=== PATIENT | male | born 1945 | race Caucasian/White ===

== ENCOUNTER 2020-05-22 16:36 | Inpatient (IN) | payer OTHER ==
[2020-05-22 17:48] LABS: #Eosinphils 0.2 thou/uL (0.0-0.7); #Monocytes 0.9 thou/uL (0.11-0.59); #Neutrophils 10.4 thou/uL (1.40-6.50); %Basophils 0.2 % (0.0-1.0); %Eosinophils 1.2 % (0.0-10.0); %Lymphocytes 14.5 % (21.0-51.0); %Monocytes 6.4 % (0.0-10.0); %Neutrophils 77.7 % (42.0-75.0); Hemoglobin 9.1 g/dL (14.0-18.0); Mean Corpuscular HGB CONC 32.9 g/dL (32.0-36.0); Mean Corpuscular Hemoglobin 30.9 pg (27.0-31.0); Mean Corpuscular Volume 93.8 fL (78.0-98.0); Mean Platelet Volume 8.1 fL (7.4-10.4); Platelet Count 232 thou/uL (130-400); RBC Distribution Width 14.5 % (11.5-14.5); Red Blood Cell (RBC) Count 2.96 mill/uL (4.70-6.10); White Blood Cell (WBC) Count 13.4 thou/uL (4.8-10.8)
[2020-05-22] MEDS ORDERED: Pantoprazole 40 MG VIAL ONE (18:04)
[2020-05-22] MEDS ORDERED: Pantoprazole 80 MG, Admixture Fee 1 EACH in Sodium Chloride 0.9% 100 ML IVPB SCH (18:45)
[2020-05-22] MEDS ORDERED: Norepinephrine 8 MG/0.9% NS 250 ML IVPB PRN (19:09)
[2020-05-22] MEDS ORDERED: Pantoprazole 80 MG in Sodium Chloride 0.9% 100 ML IVPB SCH (19:15)
[2020-05-22] MEDS ORDERED: Norepinephrine 8 MG/0.9% NS 250 ML ONE (20:04)
--- NOTE | 2020-05-22 21:01 | RAD ---
PORTABLE CHEST: History: Assess central line placement. Comparison: Exam earlier today. FINDINGS: Central line has been placed through the right jugular. The line overlies the SVC. AICD leads also ov erlie the SVC and the leads appear adequately positioned in the right atrium and right ventricle. Cardiomegaly and mild vascular congestion again noted. Interstitial prominence suggests mild intersti tial edema. No interval change in the appearance of the chest. IMPRESSION: As above. POS: AGW
[2020-05-22 21:27] LABS: Bilirubin Negative (Negative); Blood, Urine Negative (Negative); Clarity Clear (Clear); Glucose, Urine (Dipstick) Normal (Negative); Ketone, Urine Negative (Negative); Leukocyte Negative Leu/uL (Negative); Nitrite Negative (Negative); Protein, Urine (Dipstick) Negative (Neg-Trace); Specific Gravity, Urine 1.009 (1.002-1.036); Urobilinogen Normal mg/dL (Less than 2)
[2020-05-23 00:36] LABS: Hemoglobin 8.9 g/dL (14.0-18.0)
--- NOTE | 2020-05-23 01:38 | HP ---
CHIEF COMPLAINT: Bloody diarrhea. HISTORY OF PRESENT ILLNESS: The patient is a 74-year-old male, with past medical history of dilated cardiomyopathy, status post defibrillator. He also has a history of atrial arrhythmia, status post ablation and currently on anticoagulation with Xarelto, which the patient has not taken for the past couple of days. He presented to the ER due to worsening bloody stools. He stated he has been having black stools for the past month, but over the past few days, he has been noticing increasing amount. Earlier today, the patient had a large bloody bowel movement that caused him to have an episode of incontinence. This prompted the patient to present to the ER. He was found to have a hemoglobin level of 8 at an outside ER. He was hypotensive. He was transfused a unit of blood and transferred to our emergency department. In the ER, the patient has been persistently hypotensive with systolic blood pressure in the mid 70s. He appeared to be asymptomatic at rest. The patient complained of feeling weak with shortness of breath with minimal exertion. His son, who is at bedside stated that the patient's lower extremity edema has been worsening recently. The patient is currently receiving the second unit of packed RBCs. REVIEW OF SYSTEMS: Negative, except as noted in HPI. PAST MEDICAL HISTORY: Ischemic cardiomyopathy; coronary artery disease, status post stenting; atrial flutter; hypertension; hyperlipidemia; incomplete left bundle-branch block; and COPD. PAST SURGICAL HISTORY: Defibrillator placement. SOCIAL HISTORY: The patient denies alcohol or illicit drug use, but is currently smoking one and half packs of cigarettes a day. ALLERGIES: NO KNOWN DRUG ALLERGIES. PHYSICAL EXAMINATION: GENERAL: The patient is alert and oriented x3. HEENT: Head is normocephalic and atraumatic. Extraocular muscles are intact. NECK: Supple. No evidence of JVD. CHEST: Auscultation reveals fine crackles at the bases bilaterally. CARDIOVASCULAR: Reveals normal S1, S2 with regular rate and rhythm. ABDOMEN: Soft, nontender, and nondistended. NEUROLOGIC: Does not reveal any focal deficits. PERTINENT DATA: Hemoglobin level after the first unit is 9.1 and hematocrit is 27.7. Blood chemistry is largely unremarkable with creatinine level of 0.8 and BUN of 50. His BNP is 3735. Chest x-ray showed prominence of the lung marking bilaterally suggesting edema from congestive heart failure. ASSESSMENT: 1. Hemorrhagic shock. 2. Anemia due to acute blood loss. 3. Gastrointestinal bleeding. 4. Ischemic cardiomyopathy. 5. Chronic obstructive pulmonary disease. 6. Atrial flutter. PLAN: The patient will be admitted to the intensive care unit. We will initiate resuscitation with another unit of packed RBCs. Given the patient's low EF of around 10% to 15%, we might not be able to achieve very high blood pressures, so systolic blood pressure of greater than 80 would probably suffice. If we are unable to maintain his blood pressure despite transfusion, we will initiate vasopressors. GI is consulted and the patient is now on Protonix drip. I have also discussed the case with Critical Care and Cardiology. Since the patient has not taken his Xarelto yesterday, he is not a candidate for reversal agent. He will be monitored in the intensive care unit as his respiratory status might deteriorate with resuscitation efforts. We will place his antihypertensive and cardiac medications on hold until his hemodynamics are stabilized. Job ID: [id number]
[2020-05-23] MEDS ORDERED: Phenylephrine 40 MG in Sodium Chloride 0.9% 250 ML 250 ML IVPB PRN (01:45)
--- NOTE | 2020-05-23 01:50 | CON ---
DATE OF CONSULTATION: 05/22/2020 REASON FOR CONSULTATION: Hypotension related to GI bleed. HISTORY OF PRESENT ILLNESS: The patient presented to an outside emergency room earlier today with melena and some hematochezia. Onset of symptoms occurred about a week ago, associated with weakness and some dyspnea. He was fluid resuscitated. Unfortunately, he has a very low ejection fraction and there is some concern he could tip over. He has been hypotensive since being in this ER. He has received two units of PRBCs. I had to put him on low-dose Levophed. PAST MEDICAL HISTORY: 1. Cardiomyopathy. 2. Hyperlipidemia. 3. Hypertension. 4. Chronic obstructive pulmonary disease. PAST SURGICAL HISTORY: Pacemaker placement. PSYCHIATRIC HISTORY: Unremarkable. SOCIAL HISTORY: Smokes about a pack and a half a day. Uses smokeless tobacco. ALLERGIES: IODINE. MEDICATIONS: Prior to admission, not completely known at this time, but he was taking Naprosyn. He has also been taking Xarelto, but he does not take any of his medications regularly. PHYSICAL EXAMINATION: VITAL SIGNS: Temperature is 97.5, pulse 80 and paced, O2 saturation 100%, and blood pressure 96/ on 5 mcg/minute of Levophed. GENERAL: He is awake and alert and in no distress. HEENT: Unremarkable. NECK: No adenopathy or JVD. LUNGS: Clear. CARDIAC: S1, S2. Regular and paced. ABDOMEN: Soft and nontender to palpation. EXTREMITIES: Pale, but no cyanosis or edema. LABORATORY DATA: INR 1.5. Sodium 143, potassium 4, chloride 109, CO2 of 24, BUN 50, creatinine 0.8, and glucose 111. White blood cell count 13, hematocrit 27.7, and platelet count 232. Chest x-ray shows some pulmonary edema. ASSESSMENT: 1. Upper gastrointestinal bleed. 2. Cardiomyopathy. PLAN: Patient will need some Levophed for blood pressure support. He has been fluid resuscitated carefully. He has received blood. His H and H will be monitored. Dr. Bush is on the case. Patient also received IV Protonix. Job ID: [id number]
--- NOTE | 2020-05-23 01:56 | CON ---
DATE OF CONSULTATION: 05/22/2020 REASON FOR CONSULT: GI hemorrhage. HISTORY OF PRESENT ILLNESS: Mr. Maldonado is a 74-year-old gentleman, who has a history of severe heart failure with EF about anywhere between 10% and 30% with a defibrillator in place, who presented to an outside emergency room at 9 this morning with complaints of shortness of breath and bleeding, seems that he has been having some dark stools for several weeks. The son states maybe a month. When today he had two stools, it has been black to maroon and very loose. There is not really any associated pain with this. His son notes; however, he has been losing weight. His son also questions his compliance with his cardiac medicines and anticoagulation. He is usually on Xarelto, but it seems he has not taken this in at least two days. At the outside facility, he had a blood pressure 76/46 and a pulse of 76, who was given IV fluids as well as a unit of blood and transferred to this facility. He is also given 60 mg of Lasix with a liter of fluid and some Pepcid. At the outside facility, his hemoglobin was 8 with a white count of 11.9, platelet count of 239, BUN of 50, and a creatinine of 0.85 and normal electrolytes. Calcium was 7.7, albumin 2.6, protein 4.8, and liver function tests were normal. His INR was 1.5 with a PTT of 41. He was in some respiratory distress. Chest x-ray showed cardiomegaly with severe congestive heart failure. Troponins were negative at the outside facility. Here, he has received a second unit of blood. Nurses reported he had a large stool that was more maroon and black. His blood pressure was 88/57, pulse of 88, temperature 97, and O2 saturation 97% on room air and his pressures have stayed about there. He is just starting a transfusion here now for his second unit of blood. Here on arrival, his hemoglobin was 9. He was felt to be in heart failure. He was given Protonix infusion, it is now on a drip. He is being admitted to the ICU by the hospitalist, plant maintenance engineer on-call for his plant maintenance engineer has been consulted. I have talked to him on the phone. He knows reviewing the chart records, there has been some issues with compliance and the son does confirm that he does not think he has been taking his medicines. He has also had some right hip pain, for which he may have been taking NSAIDs at home. The son is not sure, but the patient has mentioned ibuprofen. PAST MEDICAL HISTORY: Severe congestive heart failure from coronary artery disease with previous stents and defibrillator placement in 2013, this was recently changed last month. He also has some COPD. He continues to smoke. He denies a history of hypertension or diabetes at this time. PAST SURGICAL HISTORY: Remote, no abdomen per son. SOCIAL HISTORY: He smokes about a pack and half per day. He does not drink anymore. When he was younger, he drank quite a bit. He lives by himself in the [facility]. ALLERGIES: POSSIBLY IODINE, BUT UNCONFIRMED. MEDICATIONS: [facility], but he is on Xarelto. A list of medicines the patient has looks like maybe from the [place] indicates; 1. Aspirin. 2. Combivent. 3. Advair. 4. Coreg. 5. Lasix. 6. Metoprolol. 7. Lisinopril. 8. Simvastatin. 9. Potassium chloride. The son notes Xarelto is on that as well, but again there is question about compliance. REVIEW OF SYSTEMS: Cannot be obtained. Other than the fact he is short of breath, he states he has been voiding. He denies prior history of bleeding. He has no chest pain. PHYSICAL EXAMINATION: VITAL SIGNS: Presently, his blood pressure is 84/49 with a pulse of 76, and O2 saturation 98%. Paced heart rhythm. GENERAL: He is alert, mildly cantankerous, history of mild dementia. He appears chronically ill. NECK: He has JVD. LUNGS: Breath sounds are poor with some crackles. HEART: He has a regular rate and rhythm. ABDOMEN: Slightly protuberant. He has no shifting dullness, tenderness, rebound, or guarding. RECTAL: Deferred. He has had large bloody stool here today. Rectal exam will be repeated once he gets upstairs. EXTREMITIES: Reveal severe edema. LABORATORY STUDIES: Here, white count 13.4 and hemoglobin 9.1, it was after 1 unit of blood at the outside hospital. Platelet count 232. INR 1.5 and PTT is 41.7. Sodium 143, potassium 4, chloride 109, bicarb 24, BUN 50, creatinine 0.85, and in October, his BUN was 22 and creatinine is 1.47. BNP is 3735 and it was 379 in 2018. Albumin is 2.6. Liver function tests normal. Troponin was 0.27 at 1217 hours. ASSESSMENT AND PLAN: 1. Gastrointestinal hemorrhage more likely upper than lower in light of his nonsteroidal anti-inflammatory drug use and dark stools for several weeks before coming in, but this could be lower. 2. [place] heart failure. 3. Hypotension. It is unclear if this is about where he runs in the past. I cannot pull up any old vital signs on [place]'s records until he is admitted to see what he has been in the past, although there is no records here prior to 2013. 4. Severe cardiomyopathy. 5. History of defibrillator placement. 6. History of mild dementia. 7. History of coronary artery disease, previous stenting. 8. Gastrointestinal hemorrhage. Resuscitation has been aggressive with the unit of blood at the outside facility, a liter of fluid there. He is on a proton pump inhibitor now. There is no role for reversal of this relative as it does not seem he has taken this in several days if at all in the past several weeks, which is fortunate for him. He will be admitted to the ICU. Atkinson catheter placed as we get him stabilized and plans if there are signs of ongoing hemorrhage, we get resuscitated in the upper GI bleed, which will probably require upper endoscopy to probably prior to intubation. If he stabilizes, we may try to diurese him first to help his cardiac status prior to that. I have talked about these. 9. I talked about these issues with the patient's son and need for resuscitation before moving to endoscopy and medical management. I have talked with the admitting hospitalist. I have talked with Pulmonary/Critical Care on-call tonight about the potential for needing intubation at some point on this evening. I have talked with Cardiology on-call as well about his past history. We will follow along with you. Job ID: [id number]
[2020-05-23 04:08] LABS: ALT (SGPT) 14 U/L (8-55); AST (SGOT) 10 U/L (5-34); Albumin 2.4 g/dL (3.4-4.8); Alkaline Phosphatase 52 U/L (40-110); Anion Gap 13 mmol/L (10-20); BUN (Urea Nitrogen) 45 mg/dL (8.4-25.7); Calc. Creatinine Clearance 81 mL/min (70-130); Calcium 7.7 mg/dL (7.8-10.44); Carbon Dioxide 23 mmol/L (23-31); Chloride 112 mmol/L (98-107); Estimated GFR-MDRD 80; Globulin 2.1 g/dL (2.4-3.5); Glucose 155 mg/dL (83-110); Potassium 4.4 mmol/L (3.5-5.1); Protein, Total 4.5 g/dL (5.8-8.1); Sodium 144 mmol/L (136-145)
[2020-05-23 04:14] LABS: Band 2 % (5-11); Eosinophils 1 % (0-10); Hemoglobin 7.6 g/dL (14.0-18.0); Lymphocytes 9 % (21-51); MDiff Complete? YES; Mean Corpuscular HGB CONC 31.5 g/dL (32.0-36.0); Mean Corpuscular Hemoglobin 29.8 pg (27.0-31.0); Mean Corpuscular Volume 94.7 fL (78.0-98.0); Mean Platelet Volume 8.3 fL (7.4-10.4); Monocytes 6 % (0-10); Neutrophil 82 % (42-75); Platelet Count 237 thou/uL (130-400); Platelet Morphology Comment Appears Adequate; RBC Distribution Width 14.3 % (11.5-14.5); Red Blood Cell (RBC) Count 2.56 mill/uL (4.70-6.10); White Blood Cell (WBC) Count 15.9 thou/uL (4.8-10.8)
--- NOTE | 2020-05-23 04:41 | PDOC.EVN ---
Event Note - Event Note Event Note: Patient hemoglobin 8.9 at 2340 last night and then at 0330 it was 7.6. Since the time that the lab was drawn the patient had two additional large melena stools. Will transfuse 1 additional unit of PRBC at this time and continue to monitor for bleeding and lab levels.
[2020-05-23] MEDS ORDERED: Ketamine 50 MG/ML (10ML VIAL) ONE (06:55)
[2020-05-23] MEDS ORDERED: Midazolam HCl 2 mg/2 ml Vial ONE (06:55)
[2020-05-23 08:13] LABS: SARS-CoV-2 NAA Rapid Test Not Detected (NotDetected)
--- NOTE | 2020-05-23 08:22 | PRG ---
DATE OF SERVICE: 05/23/2020 SUBJECTIVE: Mr. Maldonado has continued to require Levophed overnight in increasing doses. He had several bloody bowel movements last night. He has been taking down end of this morning. OBJECTIVE: VITAL SIGNS: Temperature 97.6, pulse 100, blood pressure 101/62, O2 saturation 100%. HEENT: Unremarkable. NECK: No JVD. LUNGS: Clear. CARDIAC: S1 and S2. Regular. ABDOMEN: Soft and nontender. EXTREMITIES: Edematous legs. LABORATORY DATA: White blood cell count 15.9, hematocrit 24.2, and platelet count 237. Sodium 144, potassium 4.4, chloride 112, CO2 of 23, BUN 45, creatinine 0.9, glucose 155. ASSESSMENT: 1. Gastrointestinal bleeding. 2. Cardiomyopathy. 3. Hypotension. 4. Underlying chronic obstructive pulmonary disease. PLAN: 1. Endoscopy this morning. 2. Transfuse as needed. 3. Wean off Levophed as tolerated. 4. Continue Protonix. Job ID: [id number]
[2020-05-23] MEDS: Norepinephrine 8 MG/0.9% NS 250 ML IVPB PRN ×2 (09:33→20:56)
[2020-05-23] MEDS ORDERED: EPINEPHrine 1 MG/10 ML Abboject SYRINGE ONE (10:32)
[2020-05-23] MEDS ORDERED: PHENYLEPHRINE-NS 100 MCG/ML 10 ML SYRINGE ONE (10:32)
[2020-05-23] MEDS ORDERED: EPHEDRINE 25 MG/5 ML SYRINGE ONE (10:32)
--- NOTE | 2020-05-23 10:32 | OP ---
DATE OF PROCEDURE: 05/23/2020 PROCEDURE PERFORMED: Esophagogastroduodenoscopy with control of hemorrhage. POSTPROCEDURE DIAGNOSES: 1. Duodenal ulcer, posterior wall of the bulb with visible vessel, injected with 4 mL of 1:10,000 epinephrine and cauterized with 10-Kazakh heater probe. Two hemoclips placed. Control of hemorrhage at the end of the procedure, ablation of the visible vessel. 2. Small white based ulcer, 7 mm in size, shallow, anterior wall of the bulb. No visible vessel. No active bleeding. 3. Multiple small erosions in the duodenal bulb, consistent with NSAID use. 4. Small erosions in the antrum, nonbleeding. 5. Large periampullary duodenal diverticula with no signs of bleeding. RECOMMENDATIONS: 1. Continue ICU care. 2. Continue Protonix drip for 24 hours. If no bleeding, then change to q.12 hours. 3. Transfuse to support as necessary. 4. H pylori can be checked at a later time. DESCRIPTION OF PROCEDURE: After the patient was informed of the risks, benefits, and possible complications of endoscopy including perforation, bleeding, reaction to medication, and aspiration, informed consent was obtained. The patient was brought to the endoscopy suite, where he was sedated in gradual fashion by Anesthesia. Ketamine and Versed were used secondary to his EF of 10%. A bite block was placed in the incisural orifice. The endoscope was advanced through the esophagus, stomach, into the second and third portions of the duodenum and slowly removed. The esophagus was normal without any evidence of varices or ulcerations. There was a small hiatal hernia with no evidence of Schatzki ring or [place] erosions. Retroflexed views in the stomach were normal with no proximal gastric or incisura lesions. The antrum was notable for a few small white based erosions consistent with NSAID use without visible vessel or signs of bleeding. There was some slight red blood refluxing from the duodenal bulb into the stomach. Once this was cleared away, we made sure there was no bleeding sites in the stomach. The scope was advanced to the duodenal bulb, where there was some fresh blood, moderate amounts, but no active pumping vessel seen. The scope was advanced through the bulb to the second and third portions, where old blood was found and suctioned away with no visible vessels or bleeding site seen. There was a duodenal diverticula with lot of blood and we entered this and cleared that out. There was no bleeding there. The ampulla appeared normal with clear bile coming from it. Ultimately, there was a small 7 mm flat white based ulcer in the anterior wall of the bulb, which was shallow but not bleeding. There was a red spot, but again it was not bleeding. Photo documentation was obtained. Blood continued to accumulate superiorly and posteriorly, and ultimately we were able to find a small 4 to 5 mm ulcer with a visible vessel in the posterior wall and this was injected with 1:10,000 epinephrine and then cauterized and then clipped. After this, there was no further blood reaccumulation. The duodenum was evaluated again. The stomach was evaluated and the esophagus, and the stomach was desufflated. The scope was removed. The patient was returned to the ICU. Job ID: [id number]
[2020-05-23 11:29] LABS: Hemoglobin 7.1 g/dL (14.0-18.0)
--- NOTE | 2020-05-23 12:45 | PDOC.HOSPP ---
- Subjective Encounter Date: 05/23/20 Encounter Time: 11:00 Subjective: awakens, but not oriented just came back for upper endoscopy - Objective Vital Signs & Weight: Vital Signs (12 hours) Temp Pulse Ox 05/23/20 12:04 98.0 F 05/23/20 09:00 97.9 F 05/23/20 08:00 99 05/23/20 06:00 97.6 F Weight Weight 181 lb 9.6 oz Most Recent Monitor Data Heart Rate from ECG 95 NIBP 82/51 NIBP BP-Mean 61 Respiration from ECG 16 SpO2 99 I&O: 05/22/20 05/23/20 05/24/20 06:59 06:59 06:59 Intake Total 722 475 Output Total 1170 365 Balance -448 110 Result Diagrams: 05/23/20 11:07 05/23/20 03:37 Hospitalist ROS - Medication Medications: Active Medications Generic Name Dose Route Start Last Admin Trade Name Freq PRN Reason Stop Dose Admin Pantoprazole Sodium 80 mg/ 100 mls @ 10 mls/hr 05/22/20 19:15 05/23/20 05:13 Sodium Chloride IVPB 100 mls INF MAMADOU Administration Norepinephrine Bitartrate 250 mls @ 0 mls/hr 05/22/20 19:17 05/23/20 09:33 Levophed IVPB 250 mls PRN PRN Administration To maintain MAP > 60 Protocol Titrate - Exam General Appearance: ill appearing Eye: PERRL, anicteric sclera ENT: no oropharyngeal lesions, dry oral mucosa Neck: supple, no JVD Heart: RRR, no murmur Respiratory: no wheezes, no rales, rhonchi Gastrointestinal: soft, non-distended, normal bowel sounds Extremities: no cyanosis, 2+ LE edema Neurological: cranial nerve grossly intact, no focal deficits Hosp A/P (1) GI hemorrhage Code(s): K92.2 - GASTROINTESTINAL HEMORRHAGE, UNSPECIFIED Status: Acute Qualifiers: GI bleed type/associated pathology: duodenal ulcer Qualified Code(s): K26.4 - Chronic or unspecified duodenal ulcer with hemorrhage (2) Hemorrhagic shock Code(s): R57.8 - OTHER SHOCK Status: Acute (3) Acute blood loss anemia Code(s): D62 - ACUTE POSTHEMORRHAGIC ANEMIA Status: Acute (4) Acute exacerbation of CHF (congestive heart failure) Code(s): I50.9 - HEART FAILURE, UNSPECIFIED Status: Acute Qualifiers: Heart failure type: combined systolic and diastolic Qualified Code(s): I50.43 - Acute on chronic combined systolic (congestive) and diastolic ( congestive) heart failure (5) Cardiomyopathy Code(s): I42.9 - CARDIOMYOPATHY, UNSPECIFIED Status: Chronic Qualifiers: Cardiomyopathy type: dilated Qualified Code(s): I42.0 - Dilated cardiomyopathy (6) COPD (chronic obstructive pulmonary disease) Status: Chronic Qualifiers: COPD type: unspecified COPD Qualified Code(s): J44.9 - Chronic obstructive pulmonary disease, unspecified (7) Tobacco abuse Code(s): Z72.0 - TOBACCO USE Status: Chronic (8) Dyslipidemia Code(s): E78.5 - HYPERLIPIDEMIA, UNSPECIFIED Status: Chronic (9) CAD (coronary artery disease) Code(s): I25.10 - ATHSCL HEART DISEASE OF [place] CORONARY ARTERY W/O ANG PCTRS Status: Chronic Qualifiers: Coronary Disease-Associated Artery/Lesion type: [place] artery [place] vs. transplanted heart: [place] heart - Plan serial H/h, transfuse if Hb <7g will transfuse 3 rd unit of prbc now, still on levophed, sbp around 80's now s/o egd with large duodenal ulcer with visible vessel, cauterized 05/23. ana hose to lower extremities for severe edema has apparently ef of around 10% if needed will use dobutamine based on urine output cardiology consultation prognosis guarded d/w son and gave full updates, they will talk to their father later to update us about code status. palliative care cardiology consultation, he sees
[2020-05-23] MEDS: Pantoprazole 80 MG, Admixture Fee 1 EACH in Sodium Chloride 0.9% 100 ML IVPB SCH (15:54)
[2020-05-23] MEDS ORDERED: Digoxin 0.25 MG TAB PO SCH (16:15)
--- NOTE | 2020-05-23 18:02 | EKG ---
Test Reason : STAT Blood Pressure : / mmHG Vent. Rate : 094 BPM Atrial Rate : 094 BPM P-R Int : 194 ms QRS Dur : 100 ms QT Int : 342 ms P-R-T Axes : -20 -10 -29 degrees QTc Int : 427 ms AV dual-paced rhythm PVC Abnormal ECG No previous ECGs available Confirmed by DR. Toni LOPEZ ([id number]) on 05/23/2020 6:01:38 PM Referred By: Confirmed By:DR. Toni LOPEZ
[2020-05-23 19:28] LABS: Hemoglobin 7.9 g/dL (14.0-18.0)
[2020-05-23] MEDS ORDERED: FLU VACC QS2020-21(65YR UP)/PF 240 MCG/0.7 ML SYRINGE IM ONE (21:00)
[2020-05-23 23:26] LABS: #Basophils 0.1 thou/uL (0.0-0.2); #Eosinphils 0.1 thou/uL (0.0-0.7); #Monocytes 1.1 thou/uL (0.11-0.59); #Neutrophils 12.7 thou/uL (1.40-6.50); %Basophils 0.3 % (0.0-1.0); %Eosinophils 0.4 % (0.0-10.0); %Lymphocytes 12.4 % (21.0-51.0); %Monocytes 7.1 % (0.0-10.0); %Neutrophils 79.8 % (42.0-75.0); Hemoglobin 7.7 g/dL (14.0-18.0); Mean Corpuscular HGB CONC 32.3 g/dL (32.0-36.0); Mean Corpuscular Hemoglobin 29.6 pg (27.0-31.0); Mean Corpuscular Volume 91.5 fL (78.0-98.0); Mean Platelet Volume 8.3 fL (7.4-10.4); Platelet Count 216 thou/uL (130-400); RBC Distribution Width 15.1 % (11.5-14.5); Red Blood Cell (RBC) Count 2.59 mill/uL (4.70-6.10); White Blood Cell (WBC) Count 15.9 thou/uL (4.8-10.8)
[2020-05-23 23:29] LABS: INR-International Normal Ratio 1.4; Prothrombin Time 17.6 sec (12.0-14.7)
[2020-05-23 23:30] LABS: PTT 34.7 sec (22.9-36.1)
[2020-05-23] MEDS: Albumin 25% 25 GM/100 ML BOT IVPB SCH (23:33)
--- NOTE | 2020-05-23 23:41 | RAD ---
Exam: Chest one view HISTORY:Respiratory distress Comparison: 05/22/2020 FINDINGS: Cardiac silhouette:Stable cardiomegaly. Stable left-sided defibrillator with lead positioned over the right atrium, right ventricle and coronary sinus. Redemonstration of a right-sided internal jugular vascular catheter. Distal tip terminates in the exp ected region of the superior vena cava. Aorta: Unremarkable Pulmonary vessels: Prominent Costophrenic angles: Clear LUNGS: Scattered interstitial and alveolar opacities. Pneumothorax: None Osseous abnormalities: None IMPRESSION: 1. Cardiomegaly. 2. Persistent interstitial and alveolar opacities. Correlate for edema or infiltrate.
[2020-05-23 23:42] LABS: Lactic Acid 2.6 mmol/L (0.5-2.2)
[2020-05-23 23:54] LABS: ALT (SGPT) 13 U/L (8-55); AST (SGOT) 15 U/L (5-34); Albumin 2.4 g/dL (3.4-4.8); Alkaline Phosphatase 47 U/L (40-110); Anion Gap 14 mmol/L (10-20); BUN (Urea Nitrogen) 48 mg/dL (8.4-25.7); Bilirubin, Total 1.9 mg/dL (0.2-1.2); Calc. Creatinine Clearance 74 mL/min (70-130); Calcium 7.8 mg/dL (7.8-10.44); Carbon Dioxide 20 mmol/L (23-31); Chloride 111 mmol/L (98-107); Estimated GFR-MDRD 72; Glucose 148 mg/dL (83-110); Potassium 4.3 mmol/L (3.5-5.1); Protein, Total 4.4 g/dL (5.8-8.1); Sodium 141 mmol/L (136-145)
[2020-05-24] MEDS ORDERED: Furosemide 40 MG/4 ML VIAL SLOW IVP SCH (01:30)
[2020-05-24] MEDS: Pantoprazole 80 MG, Admixture Fee 1 EACH in Sodium Chloride 0.9% 100 ML IVPB SCH ×2 (03:09→11:57)
[2020-05-24 04:52] LABS: Band 5 % (5-11); Hemoglobin 7.8 g/dL (14.0-18.0); Hypochromia SLIGHT = 6-15 cells (100X) (0-5/hpf); Lymphocytes 3 % (21-51); MDiff Complete? YES; Mean Corpuscular HGB CONC 33.3 g/dL (32.0-36.0); Mean Corpuscular Hemoglobin 30.6 pg (27.0-31.0); Mean Corpuscular Volume 91.7 fL (78.0-98.0); Mean Platelet Volume 8.2 fL (7.4-10.4); Monocytes 6 % (0-10); Neutrophil 86 % (42-75); Platelet Count 210 thou/uL (130-400); Platelet Morphology Comment Appears Adequate; RBC Distribution Width 14.8 % (11.5-14.5); Red Blood Cell (RBC) Count 2.54 mill/uL (4.70-6.10); White Blood Cell (WBC) Count 15.9 thou/uL (4.8-10.8)
[2020-05-24 05:00] LABS: Digoxin 0.25 ng/mL (0.8-2.0)
[2020-05-24 05:01] LABS: ALT (SGPT) 13 U/L (8-55); AST (SGOT) 16 U/L (5-34); Albumin 2.8 g/dL (3.4-4.8); Alkaline Phosphatase 49 U/L (40-110); Anion Gap 14 mmol/L (10-20); BUN (Urea Nitrogen) 49 mg/dL (8.4-25.7); Bilirubin, Total 2.1 mg/dL (0.2-1.2); Calc. Creatinine Clearance 70 mL/min (70-130); Carbon Dioxide 21 mmol/L (23-31); Chloride 110 mmol/L (98-107); Cholesterol 56 mg/dl (< 200 Desired); Estimated GFR-MDRD 68; Globulin 1.9 g/dL (2.4-3.5); Glucose 155 mg/dL (83-110); HDL Cholesterol 14 mg/dL (>60 Neg Risk); LDL Cholesterol, Calculated 26 mg/dL; Potassium 4.4 mmol/L (3.5-5.1); Protein, Total 4.7 g/dL (5.8-8.1); Sodium 141 mmol/L (136-145); Triglycerides 80 mg/dL (Less than 150)
[2020-05-24] MEDS: Albumin 25% 25 GM/100 ML BOT IVPB SCH ×2 (06:20→11:57)
--- NOTE | 2020-05-24 07:47 | PRG ---
DATE OF SERVICE: 05/24/2020 SUBJECTIVE: The patient continues in the ICU with hypotension status post endoscopy for upper GI bleed due to ulcers. He is still having some bright red blood per rectum. He remains on Levophed drip at 14 mcg/minute. OBJECTIVE: VITAL SIGNS: Temperature 97.6, pulse 90, blood pressure 88/67, O2 saturation 100%. 24-hour intake 5219, output 1292. HEENT: Unremarkable. NECK: No adenopathy or JVD. LUNGS: Few crackles in the bases. CARDIAC: S1, S2. Regular. ABDOMEN: Soft and nontender to palpation. EXTREMITIES: No edema. IMAGING: His x-ray shows interstitial changes bilaterally-no different from before. LABORATORY DATA: White blood cell count 15.9, hemoglobin 7.8, hematocrit 23.3, and platelet count 210. Sodium 141, potassium 4.4, chloride 110, CO2 of 21, BUN 49, creatinine 1.0, glucose 155. ASSESSMENT: 1. Gastrointestinal bleed-peptic ulcer disease. 2. Cardiomyopathy. 3. Hypotension. 4. Underlying chronic obstructive pulmonary disease. PLAN: 1. Wean off Levophed as tolerated. 2. Continue Protonix. 3. Give one more unit PRBCs. 4. Can discontinue Atkinson catheter. Job ID: [id number]
[2020-05-24] MEDS: Digoxin 0.125 MG TAB PO SCH (08:45)
[2020-05-24] MEDS: Amiodarone 200 MG TAB PO SCH (08:45)
--- NOTE | 2020-05-24 13:22 | PDOC.HOSPP ---
- Subjective Encounter Date: 05/24/20 Encounter Time: 11:00 Subjective: awake, no abd pain or nausea is tolerating liq diet - Objective Vital Signs & Weight: Vital Signs (12 hours) Temp Pulse Resp Pulse Ox 05/24/20 11:00 97.8 F 05/24/20 08:45 98 05/24/20 08:28 96.5 F L 05/24/20 08:00 96.5 F L 05/24/20 07:46 100 05/24/20 04:30 97.6 F 16 92 L 05/24/20 04:00 97.9 F 05/24/20 02:05 97.8 F 18 98 Weight Weight 181 lb 7.047 oz Most Recent Monitor Data Heart Rate from ECG 106 NIBP 101/59 NIBP BP-Mean 73 Respiration from ECG 31 SpO2 98 I&O: 05/23/20 05/24/20 05/25/20 06:59 06:59 06:59 Intake Total 722 2519 0 Output Total 1170 1292 200 Balance -448 1227 -200 Result Diagrams: 05/24/20 04:00 05/24/20 04:00 Hospitalist ROS - Medication Medications: Active Medications Generic Name Dose Route Start Last Admin Trade Name Freq PRN Reason Stop Dose Admin Amiodarone HCl 200 mg 05/24/20 09:00 05/24/20 08:45 Amiodarone 200 Mg Tab PO 200 mg DAILY MAMADOU Administration Digoxin 0.125 mg 05/24/20 09:00 05/24/20 08:45 Digoxin 0.125 Mg Tab PO 0.125 mg DAILY MAMADOU Administration Norepinephrine Bitartrate 250 mls @ 0 mls/hr 05/22/20 19:17 05/23/20 20:56 Levophed IVPB 250 mls PRN PRN Administration To maintain MAP > 60 Protocol Titrate Pantoprazole Sodium 80 mg/ 100 mls @ 10 mls/hr 05/23/20 13:00 05/24/20 11:57 Miscellaneous Medication 1 IVPB 100 mls each/ Sodium Chloride INF MAMADOU Administration - Exam General Appearance: awake alert, ill appearing Eye: PERRL, anicteric sclera ENT: no oropharyngeal lesions, dry oral mucosa Neck: supple, no JVD Heart: RRR, no murmur Respiratory: no wheezes, no ronchi, rales Gastrointestinal: soft, non-tender, non-distended, normal bowel sounds Extremities: no cyanosis, 2+ LE edema Neurological: cranial nerve grossly intact, no focal deficits Hosp A/P (1) GI hemorrhage Code(s): K92.2 - GASTROINTESTINAL HEMORRHAGE, UNSPECIFIED Status: Acute Qualifiers: GI bleed type/associated pathology: duodenal ulcer Qualified Code(s): K26.4 - Chronic or unspecified duodenal ulcer with hemorrhage (2) Hemorrhagic shock Code(s): R57.8 - OTHER SHOCK Status: Acute (3) Acute blood loss anemia Code(s): D62 - ACUTE POSTHEMORRHAGIC ANEMIA Status: Acute (4) Acute exacerbation of CHF (congestive heart failure) Code(s): I50.9 - HEART FAILURE, UNSPECIFIED Status: Acute Qualifiers: Heart failure type: combined systolic and diastolic Qualified Code(s): I50.43 - Acute on chronic combined systolic (congestive) and diastolic (congestive) heart failure (5) Cardiomyopathy Code(s): I42.9 - CARDIOMYOPATHY, UNSPECIFIED Status: Chronic Qualifiers: Cardiomyopathy type: dilated Qualified Code(s): I42.0 - Dilated cardiomyopathy (6) COPD (chronic obstructive pulmonary disease) Status: Chronic Qualifiers: COPD type: unspecified COPD Qualified Code(s): J44.9 - Chronic obstructive pulmonary disease, unspecified (7) Tobacco abuse Code(s): Z72.0 - TOBACCO USE Status: Chronic (8) Dyslipidemia Code(s): E78.5 - HYPERLIPIDEMIA, UNSPECIFIED Status: Chronic (9) CAD (coronary artery disease) Code(s): I25.10 - ATHSCL HEART DISEASE OF [place] CORONARY ARTERY W/O ANG PCTRS Status: Chronic Qualifiers: Coronary Disease-Associated Artery/Lesion type: [place] artery [place] vs. transplanted heart: [place] heart - Plan serial H/h, transfuse if Hb <7g recieved total of 5 u prbc this admission, still on levophed, sbp around 90's now s/p egd with large duodenal ulcer with visible vessel, cauterized 05/23. ana hose to lower extremities for severe edema has apparently ef of around 10% if needed will use dobutamine based on urine output prognosis guarded d/w son and daughter, gave full updates. palliative care consultation
--- NOTE | 2020-05-24 14:16 | PRG ---
DATE OF SERVICE: 05/24/2020 SUBJECTIVE: Mr. Maldonado is not having any abdominal pain or nausea. He has continued to pass some melenic stools. Nursing reports these are maroonish in color, small amount every couple of hours. He remains on Levophed, but is not tachycardic. He received one more unit of RBCs this morning after repeat hemoglobin was 7.8. He has received 5 units RBCs total. OBJECTIVE: VITAL SIGNS: Temperature 97.8, heart rate 98, blood pressure is 101/59, and oxygen saturation 98% on 2 L nasal cannula. GENERAL: No acute distress, sitting up in chair comfortably. HEART: Regular rate and rhythm. LUNGS: Bibasilar crackles. No respiratory distress. ABDOMEN: Bowel sounds present. Soft and nontender. EXTREMITIES: 1+ bilateral lower extremity edema. LABORATORY STUDIES: Hemoglobin is 7.8, WBC 15.9, and platelets 210. INR 1.4. Sodium 141, potassium 4.4, BUN is 49, creatinine 1.06, total bilirubin 2.1, alkaline phosphatase 49, AST 16, ALT 13, and albumin 2.8. ASSESSMENT AND PLAN: 1. Duodenal ulcer with hemorrhage, status post successful endoscopic intervention by Dr. Bush yesterday, visible vessel was treated with epinephrine injection, cautery, and hemoclip placement. 2. Acute blood loss anemia. 3. Congestive heart failure, with severely depressed ejection fraction. The patient has continued to pass some bloody stools, but it is not entirely clear to me whether this just represents old blood being passed or ongoing hemorrhage. He is relatively hemodynamically stable but did require another unit RBC transfusion today. He is at very high risk for any repeat endoscopy, though this could be considered if we had high suspicion for ongoing or recurrent bleeding. At this point, continue the pantoprazole drip, continue to trend H and H and transfuse as needed. If hemoglobin is not stabilized tomorrow and BUN remained elevated to this degree, then potentially repeat EGD could be performed tomorrow. We will have the patient n.p.o. after midnight just in case. Obviously, please call anytime if there are questions or concerns or changes in his clinical status. Job ID: [id number]
[2020-05-24] MEDS: Norepinephrine 8 MG/0.9% NS 250 ML IVPB PRN (15:12)
[2020-05-25] MEDS: Pantoprazole 80 MG, Admixture Fee 1 EACH in Sodium Chloride 0.9% 100 ML IVPB SCH ×2 (00:12→09:49)
[2020-05-25] MEDS: Norepinephrine 8 MG/0.9% NS 250 ML IVPB PRN ×2 (02:13→12:18)
[2020-05-25 05:28] LABS: Band 3 % (5-11); Lymphocytes 12 % (21-51); MDiff Complete? YES; Mean Corpuscular Hemoglobin 30.5 pg (27.0-31.0); Mean Corpuscular Volume 89.7 fL (78.0-98.0); Mean Platelet Volume 8.5 fL (7.4-10.4); Monocytes 7 % (0-10); Neutrophil 78 % (42-75); Platelet Count 231 thou/uL (130-400); Platelet Morphology Comment Appears Adequate; RBC Distribution Width 14.7 % (11.5-14.5); Red Blood Cell (RBC) Count 2.94 mill/uL (4.70-6.10); White Blood Cell (WBC) Count 22.1 thou/uL (4.8-10.8)
[2020-05-25 05:53] LABS: ALT (SGPT) 140 U/L (8-55); AST (SGOT) 215 U/L (5-34); Albumin 3.4 g/dL (3.4-4.8); Alkaline Phosphatase 56 U/L (40-110); Anion Gap 19 mmol/L (10-20); BUN (Urea Nitrogen) 63 mg/dL (8.4-25.7); Bilirubin, Total 4.2 mg/dL (0.2-1.2); Calc. Creatinine Clearance 44 mL/min (70-130); Calcium 8.9 mg/dL (7.8-10.44); Carbon Dioxide 18 mmol/L (23-31); Chloride 110 mmol/L (98-107); Estimated GFR-MDRD 40; Globulin 1.8 g/dL (2.4-3.5); Glucose 103 mg/dL (83-110); Potassium 4.7 mmol/L (3.5-5.1); Protein, Total 5.2 g/dL (5.8-8.1); Sodium 142 mmol/L (136-145)
[2020-05-25] MEDS: Digoxin 0.125 MG TAB PO SCH (07:43)
[2020-05-25] MEDS: Amiodarone 200 MG TAB PO SCH (07:43)
--- NOTE | 2020-05-25 07:53 | PRG ---
DATE OF SERVICE: 05/25/2020 SUBJECTIVE: Mr. Maldonado is still passing blood per rectum. He complains that he is thirsty. OBJECTIVE: VITAL SIGNS: His temperature 96.9, pulse 105, blood pressure 97/60, and O2 saturation is 95%. He is currently on Levophed at 14 mcg/minute. He is also on a Protonix drip. His intake for the last 24 hours has been 1045, output 250. HEENT: Unremarkable. NECK: No JVD. LUNGS: Clear. CARDIAC: S1, S2. Regular. ABDOMEN: Soft. EXTREMITIES: Edematous. LABORATORY DATA: White blood cell count 22.1, hemoglobin 9, hematocrit 26.4, and platelet count 231. Sodium 142, potassium 4.7, chloride 110, CO2 of 18, BUN 63, creatinine 1.6, glucose 103, AST 215, and ALT 140. His echocardiogram demonstrated an ejection fraction of 10% to 15% with pulmonary hypertension and mild aortic regurgitation and severe tricuspid regurgitation. ASSESSMENT: 1. Gastrointestinal bleed. 2. Cardiomyopathy. 3. Pulmonary hypertension. 4. Systemic hypotension. 5. Underlying chronic obstructive pulmonary disease. 6. Anemia due to blood loss. PLAN: 1. May need repeat endoscopy - we will defer GI Service on this. 2. Wean Levophed as tolerated. 3. Dr. Jessica has consulted Dr. Guzman to evaluate the patient's heart failure. 4. The patient will need to remain in ICU while he is on the Levophed drip. Job ID: [id number]
[2020-05-25] MEDS ORDERED: DOBUTamine 500 mg/250 ml 250 ML ONE (09:26)
--- NOTE | 2020-05-25 09:50 | PRG ---
DATE OF SERVICE: 05/25/2020 SUBJECTIVE: Mr. Madlonado passed a 4 or 5 small volume dark stools last night. He has had no abdominal pain or nausea or vomiting. He is asking for fluids to drink. OBJECTIVE: VITAL SIGNS: Temperature 97.6, blood pressure 88/59. Remains on Levophed. Pulse 105. GENERAL: He is in no acute distress. He is awake and alert. LUNGS: Have coarse breath sounds bilaterally with expiration, low pitched wheeze. HEART: Tachycardic. S1 and S2. ABDOMEN: Soft, nontender, and nondistended. Bowel sounds are present. EXTREMITIES: 2+ pitting lower extremity edema. LABORATORY DATA: White blood cell count 22.1, hemoglobin 9.0, platelets 231. INR 1.4. Creatinine 1.68 with a BUN of 63, bilirubin 4.2, AST 215, ALT 140, alkaline phosphatase 56. IMPRESSION: 1. Gastrointestinal bleed, status post cautery of a visible vessel and duodenal ulcer. He received 2 units of transfusion yesterday, however, one of those was prior to the blood draw yesterday. His hemoglobin from 05/23/2020 to today has gone from 7.7 and 9.0 after the 2 units. He is relatively stable and we will keep an eye on this. He is an extremely poor candidate for any type of anesthesia at this point and we will just need to transfuse as necessary. 2. Ischemic hepatopathy. His AST is greater than ALT with bump in his bilirubin and concurrent acute renal injury. This is likely all secondary to congestive hepatopathy. 3. Acute renal failure. 4. Leukocytosis. He is having blood cultures drawn and empiric antibiotics given by the primary service. RECOMMENDATIONS: We will continue to monitor the trend of his hemoglobin and transfused as necessary. Upper endoscopy could be performed if he shows significant overt bleeding; however, he is extremely high risk for anesthesia. He remains on Levophed and he is showing injury to multiple organs now from hypoperfusion. Job ID: [id number]
[2020-05-25] MEDS: Piperacillin/Tazobactam 3.375 GM in Sodium Chloride 0.9% 100 ML IVPB SCH ×2 (12:19→17:37)
[2020-05-25] MEDS: ALPRAZolam 0.5 MG TAB PO PRN (12:31)
--- NOTE | 2020-05-25 13:29 | PDOC.HOSPP ---
- Subjective Encounter Date: 05/25/20 Encounter Time: 12:30 Subjective: awake, responds well to verbal questions no abd pain has had multiple loose stools daughter at bedside - Objective Vital Signs & Weight: Vital Signs (12 hours) Temp Pulse Pulse Ox 05/25/20 08:00 97 05/25/20 07:43 98 05/25/20 07:00 97.6 F 05/25/20 04:00 96.9 F L Weight Weight 183 lb Most Recent Monitor Data Heart Rate from ECG 103 NIBP 86/57 NIBP BP-Mean 66 Respiration from ECG 23 SpO2 98 I&O: 05/24/20 05/25/20 05/26/20 06:59 06:59 06:59 Intake Total 2519 1045 150 Output Total 1292 250 Balance 1227 795 150 Result Diagrams: 05/25/20 05:10 05/25/20 05:10 Hospitalist ROS - Medication Medications: Active Medications Generic Name Dose Route Start Last Admin Trade Name Freq PRN Reason Stop Dose Admin Alprazolam 0.5 mg 05/25/20 12:24 05/25/20 12:31 Alprazolam 0.5 Mg Tab PO 0.5 mg Q8H PRN Administration Anxiety Amiodarone HCl 200 mg 05/24/20 09:00 05/25/20 07:43 Amiodarone 200 Mg Tab PO 200 mg DAILY MAMADOU Administration Digoxin 0.125 mg 05/24/20 09:00 05/25/20 07:43 Digoxin 0.125 Mg Tab PO 0.125 mg DAILY MAMADOU Administration Norepinephrine Bitartrate 250 mls @ 0 mls/hr 05/22/20 19:17 05/25/20 12:18 Levophed IVPB 250 mls PRN PRN Administration To maintain MAP > 60 Protocol Titrate Pantoprazole Sodium 80 mg/ 100 mls @ 10 mls/hr 05/23/20 13:00 05/25/20 09:49 Miscellaneous Medication 1 IVPB 100 mls each/ Sodium Chloride INF MAMADOU Administration Piperacillin Sod/Tazobactam 100 mls @ 200 mls/hr 05/25/20 12:00 05/25/20 12:19 Sod 3.375 gm/ Sodium Chloride IVPB 100 mls Q6HR MAMADOU Administration - Exam General Appearance: awake alert, ill appearing Eye: PERRL, anicteric sclera ENT: no oropharyngeal lesions, dry oral mucosa Neck: supple, no JVD Heart: RRR, no murmur Respiratory: no wheezes, no ronchi, rales Gastrointestinal: soft, non-tender, non-distended, normal bowel sounds Extremities: no cyanosis, 2+ LE edema Neurological: cranial nerve grossly intact, no focal deficits Hosp A/P (1) GI hemorrhage Code(s): K92.2 - GASTROINTESTINAL HEMORRHAGE, UNSPECIFIED Status: Acute Qualifiers: GI bleed type/associated pathology: duodenal ulcer Qualified Code(s): K26.4 - Chronic or unspecified duodenal ulcer with hemorrhage (2) Hemorrhagic shock Code(s): R57.8 - OTHER SHOCK Status: Acute (3) Acute blood loss anemia Code(s): D62 - ACUTE POSTHEMORRHAGIC ANEMIA Status: Acute (4) Acute exacerbation of CHF (congestive heart failure) Code(s): I50.9 - HEART FAILURE, UNSPECIFIED Status: Acute Qualifiers: Heart failure type: combined systolic and diastolic Qualified Code(s): I50.43 - Acute on chronic combined systolic (congestive) and diastolic (congestive) heart failure (5) Cardiomyopathy Code(s): I42.9 - CARDIOMYOPATHY, UNSPECIFIED Status: Chronic Qualifiers: Cardiomyopathy type: dilated Qualified Code(s): I42.0 - Dilated cardiomyopathy (6) COPD (chronic obstructive pulmonary disease) Status: Chronic Qualifiers: COPD type: unspecified COPD Qualified Code(s): J44.9 - Chronic obstructive pulmonary disease, unspecified (7) Tobacco abuse Code(s): Z72.0 - TOBACCO USE Status: Chronic (8) Dyslipidemia Code(s): E78.5 - HYPERLIPIDEMIA, UNSPECIFIED Status: Chronic (9) CAD (coronary artery disease) Code(s): I25.10 - ATHSCL HEART DISEASE OF [place] CORONARY ARTERY W/O ANG PCTRS Status: Chronic Qualifiers: Coronary Disease-Associated Artery/Lesion type: [place] artery [place] vs. transplanted heart: [place] heart - Plan serial H/h, transfuse if Hb <7g recieved total of 5 u prbc this admission, still on levophed, dobutamine has been added from today, sbp around 90's now s/p egd with large duodenal ulcer with visible vessel, cauterized 05/23. ana hose to lower extremities for severe edema has ef of around 10%, hepatic congestion from chf prognosis guarded d/w daughter, gave full updates. palliative care consultation
--- NOTE | 2020-05-25 14:24 | CON ---
DATE OF CONSULTATION: HISTORY: Jey Maldonado is a 74-year-old white male, who I initially evaluated in September 2013. He had myocardial infarction in 1999 with stent placement in the first diagonal. He had another myocardial infarction in 2002 and a stent was placed in the circumflex. Cardiac cath at [facility] in October 2009 revealed a 40% to 50% LAD lesion, 60% first obtuse marginal and totally occluded right coronary artery. Ejection fraction was 50% to 55%. In February 2011, he had an ejection fraction of 34% on PET scan, as well as a large fixed defect in the inferior wall consistent with scar and inferior wall akinesis. Cardiolite scan in November 2011 revealed an ejection fraction of 31%. There was a large fixed posterolateral wall and anteroseptal defect. When I initially saw him, he complained of increased shortness of breath. He denied any chest discomfort. He also had a thyroid nodule, but refused further evaluation of that. His ejection fraction at that time was 10% to 15%. He was switched from metoprolol to carvedilol and furosemide was increased from 20 to 40 mg daily. Throughout all this, he has continued to smoke 1 to 1-1/2 packs per day. He also had left bundle branch block and had a biventricular ICD placed. DICTATION ENDS HERE Job ID: [id number] MTDD
[2020-05-25] MEDS ORDERED: Albumin 25% 25 GM/100 ML BOT IVPB SCH (15:45)
[2020-05-25 16:25] LABS: #Monocytes 1.1 thou/uL (0.11-0.59); #Neutrophils 10.5 thou/uL (1.40-6.50); %Basophils 0.3 % (0.0-1.0); %Eosinophils 0.1 % (0.0-10.0); %Lymphocytes 14.6 % (21.0-51.0); %Monocytes 7.9 % (0.0-10.0); %Neutrophils 77.1 % (42.0-75.0); Hemoglobin 8.2 g/dL (14.0-18.0); Mean Corpuscular Hemoglobin 30.8 pg (27.0-31.0); Mean Corpuscular Volume 90.7 fL (78.0-98.0); Mean Platelet Volume 8.5 fL (7.4-10.4); Platelet Count 169 thou/uL (130-400); RBC Distribution Width 15.1 % (11.5-14.5); Red Blood Cell (RBC) Count 2.66 mill/uL (4.70-6.10); White Blood Cell (WBC) Count 13.6 thou/uL (4.8-10.8)
--- NOTE | 2020-05-25 17:03 | PDOC.PALCO ---
Palliative Care Consult - Consult Details Requesting Physician: Dr Mittal Reason for Consult: goals of care, advance directives assistance, family support, complex decision-making Family Members Present: Daughter and son Gene - Pertinent HPI 74 year old male who has lived in an independent home setting caring for himself. He has a significant cardiovascular history including dilated cardiomyopathy, atrial arrhythmia on anticoagulation, self reports intermittently compliant with medications. Onset of black stools lasting over a month, worsening and increasing in bloody color leading to seek evaluation at emergency room. He was found to have a hemoglobin of 8, hypotensive with weakness and shortness of breath. Also reported increase in lower extremity edema. Admitted to CCU for higher level of care. Received PRBC. - Pertinent PMH Ischemic cardiomyopathy, CAD, Atrial flutter, hypertension, HDL, COPD - Social History Smoking Status: Current every day smoker Smoking: greater than 1 pack/day Alcohol Use: none Drug Use History: none Living Situation: independent - Medications MAR Reviewed: Yes - Allergies Allergies/Adverse Reactions: Allergies Allergy/AdvReac Type Severity Reaction Status Date / Time No Known Allergies Allergy Unverified 05/22/20 18:34 - Subjective Sitting at bedside, confused earlier in the day but currently fully oriented and decisional. Remains on pressure support. - ROS Constitutional: weakness ENT: other (Negative for difficulity swallowing, throat irritation) Respiratory: shortness of breath, shortness of breath with extertion Cardiology: edema Genitourinary: other (Denies hematuria, dysuria) Musculoskeletal: arthritis/arthralgias Neurological: weakness Skin: other (Negative for rash or puritis) - Objective Vital Signs: Vital Signs - Most Recent Temp Pulse Resp BP Pulse Ox 97.5 F L 98 16 102/72 97 05/25/20 15:00 05/25/20 07:43 05/24/20 04:30 05/22/20 21:25 05/25/20 08:00 Palliative Performance Scale: 40 - Physical Exam Constitutional: ill appearing HEENT: EOMI, moist MMs Respiratory: no rhonchi, no wheezing, diminished lung sound Deviation from normal: increased accessory muscle use with conversation Cardiovascular: irregular Gastrointestinal: soft, non-tender Genitourinary: continent Musculoskeletal: edema present Neurology: moves all 4 limbs, no focal deficits Skin: cap refill <2 seconds, no lesions, no rash Psychiatric: A&O x 3 - Problem List (1) Palliative care encounter Code(s): Z51.5 - ENCOUNTER FOR PALLIATIVE CARE Current Visit: Yes Status: Acute (2) Acute blood loss anemia Code(s): D62 - ACUTE POSTHEMORRHAGIC ANEMIA Current Visit: Yes Status: Acute (3) Acute exacerbation of CHF (congestive heart failure) Code(s): I50.9 - HEART FAILURE, UNSPECIFIED Current Visit: Yes Status: Acute Qualifiers: Heart failure type: combined systolic and diastolic Qualified Code(s): I50.43 - Acute on chronic combined systolic (congestive) and diastolic (congestive) heart failure (4) COPD (chronic obstructive pulmonary disease) Current Visit: Yes Status: Chronic Qualifiers: COPD type: unspecified COPD Qualified Code(s): J44.9 - Chronic obstructive pulmonary disease, unspecified (5) Cardiomyopathy Code(s): I42.9 - CARDIOMYOPATHY, UNSPECIFIED Current Visit: Yes Status: Chronic Qualifiers: Cardiomyopathy type: dilated Qualified Code(s): I42.0 - Dilated cardiomyopa thy (6) Tobacco abuse Code(s): Z72.0 - TOBACCO USE Current Visit: Yes Status: Chronic - Plan/Recommendations Plan: Introduced Palliative care to patient, his daughter and son Osorio. Patient has 3 children, his other son is arriving this evening. The patient and his children plan on discussing resuscitation status this evening. They are hopeful for meaningful recovery, but understanding of fragile state. Patient has lived independently, and as per daughter been resistant to assistance in the home setting. Dignity and independence are important to him. His grandchildren are "his favorite things" and his grandson is arriving tonight from out of state that patient is especially close to. Palliative Care will follow up 05/26/2020 for further discussion of resuscitation status, address Directive to physician and discuss Goal of Care. [50] minutes spent on this encounter with >50% of the time in counseling and coordination of care. Thank you for this very appropriate consult.
[2020-05-25] MEDS: Albumin 25% 25 GM/100 ML BOT IVPB SCH (17:37)
[2020-05-25] MEDS ORDERED: Furosemide 40 MG/4 ML VIAL SLOW IVP PRN (17:46)
[2020-05-25] MEDS ORDERED: Digoxin 0.5 MG/2 ML AMP SLOW IVP SCH (18:00)
[2020-05-25 21:10] VITALS: BP 83/61
[2020-05-26] MEDS: Piperacillin/Tazobactam 3.375 GM in Sodium Chloride 0.9% 100 ML IVPB SCH ×5 (00:31→23:40)
[2020-05-26] MEDS: Norepinephrine 8 MG/0.9% NS 250 ML IVPB PRN ×3 (00:31→22:55)
[2020-05-26] MEDS: Albumin 25% 25 GM/100 ML BOT IVPB SCH ×4 (00:31→17:04)
[2020-05-26] MEDS: ALPRAZolam 0.5 MG TAB PO PRN ×2 (00:31→14:06)
[2020-05-26 06:31] LABS: Band 1 % (5-11); Hemoglobin 8.3 g/dL (14.0-18.0); Hypochromia SLIGHT = 6-15 cells (100X) (0-5/hpf); Lymphocytes 8 % (21-51); MDiff Complete? YES; Mean Corpuscular HGB CONC 32.6 g/dL (32.0-36.0); Mean Corpuscular Hemoglobin 29.9 pg (27.0-31.0); Mean Corpuscular Volume 91.8 fL (78.0-98.0); Mean Platelet Volume 8.2 fL (7.4-10.4); Metamyelocyte 2 % (0-0); Monocytes 2 % (0-10); Neutrophil 87 % (42-75); Platelet Count 146 thou/uL (130-400); Platelet Morphology Comment Appears Adequate; RBC Distribution Width 14.7 % (11.5-14.5); Red Blood Cell (RBC) Count 2.77 mill/uL (4.70-6.10); White Blood Cell (WBC) Count 10.1 thou/uL (4.8-10.8)
[2020-05-26 07:21] VITALS: BMI 26.5
--- NOTE | 2020-05-26 07:30 | CON ---
DATE OF CONSULTATION: 05/25/2020 REASON FOR CONSULT: Management of shock and GI bleed of a heart failure patient. HISTORY OF PRESENT ILLNESS: Mr. Jey Maldonado, a 74-year-old gentleman with known coronary artery disease and heart failure with reduced ejection fraction, presented with GI bleeding and shock. Mr. Jey Maldonado said he had bouts of bloody or tarry black bowel movements episodically for the last 1 to 3 months. He really did not know what was going on. However, he believed he was getting weaker. Then, on May 22, 2020, he had a large dark tarry bowel movement that occurred while he was dressed and he soiled himself. Then he realized there is something very very wrong. He drove himself to the local ER. There at the local ER, he was found to have significant anemia due to blood loss and he was transferred to [facility] at [place], [place]. At [facility], EGD was done. EGD found duodenal ulcer that was bleeding. It was cauterized and hemoclip was also placed and ablation of the visible vessel was also done. There is also small white based ulcer. There were also multiple erosions in the gastric region. He then received 5 units of blood over a period of 2 days. There was difficulty maintaining his blood pressure. Norepinephrine was titrated up to 14 mcg/minute. Consequently, help was requested. Mr. Maldonado' heart problems began in 1999. Apparently, he had a myocardial infarction. A stent was placed in the 1st diagonal. He then had another myocardial infarction in 2002. A stent was placed in the left circumflex. He has diffuse coronary artery disease that could not be intervened with revascularization. Ejection fraction as of 2010 was still about 50%. Mr. Jey Maldonado said he began to go into heart failure in 2013. Since 2013 and 2014, he had a steady and progressive decline. Recently, he had an AICD type of device that was placed three weeks ago. He lives by himself. He is reported to be noncompliant with medication. He is unable to take the medications as prescribed. For example, it was reported that at one time he was asked to stop Eliquis only. Since he could not remember what to stop, he stopped taking all his cardiac medications. So, he would go to decompensation from not taking his heart medications for long times. PAST MEDICAL HISTORY: 1. Coronary artery disease. This includes myocardial infarction in 1999, 2002, and multiple stents placed. Currently, he is being medically managed. 2. Heart failure with reduced ejection fraction, first onset in 2014. 3. Atrial fibrillation. 4. Gastric ulcer. 5. COPD. SOCIAL HISTORY: 1. Mr. Maldonado has smoked all his life. He is still an active smoker. Thus he probably smoked for over 50 years. 2. He does not drink any alcohol. 3. He denies illicit drug use. 4. He currently lives alone. His is a . His last year. This caused quite a bit of grief. FAMILY HISTORY: His mother of sudden cardiac during sleep at age 54. His father of heart disease at age 65. He has two brothers, who also have heart diseases. MEDICATIONS: His current inpatient medications include; 1. Alprazolam (Xanax) 0.5 mg q.8 hours for anxiety. 2. Amiodarone 200 mg daily. 3. Digoxin 0.125 mg daily. 4. Norepinephrine currently 14 mcg/minute. 5. Protonix drip. REVIEW OF SYSTEMS: GENERAL: He does not have fever or chills, but he is feeling weak. HEENT: There is no change in vision, hearing, or swallowing. PULMONARY: He is not short of breath currently. CARDIAC: He has palpitations, but no chest pains or syncope. GI: He admits to have a large bloody bowel movement. He said he continued to have dark stools and possibly bloody bowel movements as late as one today during lunch. : He is able to urinate on his own. MUSCULOSKELETAL: He does not complain of any of muscle pains or joint pains currently. INTEGUMENT: There are no skin breakdowns. NEUROLOGIC: There are no focal deficits or weaknesses. PHYSICAL EXAMINATION: VITAL SIGNS: At the time of my exam with heart rate about 104, blood pressure 88/52. GENERAL: He is alert, conversational, but looking very fatigued and stressed. HEENT: Showed EOMI. Oropharynx shows moist mucosa. NECK: JVP is high at about 13 cm. LUNGS: He actually has good air movement. It is clear to auscultation bilaterally. ABDOMEN: Soft and positive bowel sounds. EXTREMITIES: Lower extremities, he has 1.5 cm or deeper pitting edema from his feet all the way up to his knees. He has pitting edema up to his thighs. LABORATORY VALUES: White cell count of 22, hemoglobin 9, platelets of 231. His chemistry shows sodium of 142, potassium 4.7, chloride 110, bicarb 18, BUN is 63, and creatinine 1.68 that increased from 1.06. He also had shock liver pattern of total bilirubin 4.2, AST of 215, ALT 140, albumin 3.4. READING OF ECHOCARDIOGRAM: The echocardiogram from May 24, 2020, was reviewed. 1. The patient has a moderately enlarged right ventricular size. 2. He has decreased right ventricular function. 3. The patient has severely dilated left ventricle at 8.13 cm. 4. The patient's LVEF severely depressed at 10% ejection fraction. 5. The patient's mid and lateral wall are dyskinetic. 6. The patient has severe mitral regurgitation. 7. The patient likely to have moderate aortic regurgitation. 8. The patient has diastolic dysfunction with E prime velocity only 6 cm/second. ASSESSMENT: An unfortunate 74-year-old gentleman has most pressing problem of active gastrointestinal bleed. This is caused by gastric bleed. He has inadequate response to transfusion. Five units of blood only bringing up from 7.1 to 9. This is a way too small amount. I suspect there is active GI bleed still. Without having his blood volume under control, he will continue to go hypotensive. His hypotension then will drive multiorgan dysfunction such as renal failure and shock liver. His labs are correlating with shock liver, where his liver is not being well perfused. Thus the first priority will need to be expand intravascular volume and ensure that he has enough blood. He has most likely [place] Heart Association stage D and [place] Heart Association class 3B heart failure with reduced ejection fraction. His LVEF is only 10% with right ventricular dysfunction and significant mitral regurgitation. This is very bad combination. He will need significant amount of inotropic stimulation to generate greater stroke volume, which is needed to perfuse his body organs and to perfuse the heart itself. His noncompliance and his nature preclude him from consideration for advanced heart failure therapy such as left ventricular assist device. At this point, our main objective is to stabilize him and ensure that he can survive this hospitalization. Please see the following for my recommendations. RECOMMENDATIONS: 1. Please provide albumin 25 g q.6 hours to expand volume. 2. Please check CBC q.12 hours, first check now. 3. Please transfuse to keep hemoglobin above 9. 4. Please use 5:1 ratio for every 5 units of blood transfused, at least 1 unit of fresh frozen plasma. 5. Please do blood culture x2. 6. Please start Zosyn 3.375 g IV q.6 hours. 7. Please add dobutamine, start at 2.5 mcg/kg per minute, may titrate up to 15 mcg/kg per minute. 8. Titrate up norepinephrine as needed up to 15 mcg/min. 9. If dobutamine is greater than 10 and nor-epi is greater than 10, then please start vasopressin 0.04 units/minute that would give him physiologic support of the blood vessels. 10. Please consult Palliative Care. The patient is critically ill. The combination of active GI bleed, arrhythmia, and severe heart failure with reduced ejection fraction place him at a low chance of survival. However, I will do my best to help him. 11. Interrogate and adjust OFFBEARER-D to optimize effective cardiac contraction (see procedure below) It has been a pleasure of taking care of Mr. Jey Maldonado. If you have any questions, please give me a call. This ICU visitation took about 75 minutes. This includes personally performing history and physical, getting history from his daughter and the patient, reading echocardiogram, and direct patient interaction, and interacting with various services. PROCEDURE: Interrogate and Adjust OFFBEARER-D Interrogation - [employer]onic Amplia MRI CRTD [id number] SN:[id number] - Was DDDR with lower rate of 70 bpm - No VT or VFib episodes - -VS 9.8%, -ENGINEER GAS PUMPING STATION 35.5%, AP-VS 9.1%, AP-ENGINEER GAS PUMPING STATION 45.6% - EGM showed rapid AFIB with fast conduction through AV node with underlying BBB pattern Adjustments - adjusted OFFBEARER-D to optimize number of effective beats and minimize AFIB - increased lower rate limit to 85 bpm - turned on rate stabilization algorithm Resulted in much more regular rhythm with slower overall rate This procedure required an additional 20 minutes. Job ID: [id number] [facility]
[2020-05-26] MEDS: Amiodarone 200 MG TAB PO SCH (08:09)
[2020-05-26] MEDS: Digoxin 0.125 MG TAB PO SCH (08:09)
--- NOTE | 2020-05-26 08:11 | PRG ---
DATE OF SERVICE: 05/26/2020 SUBJECTIVE: Mr. Maldonado is awake. He is playing card games on his iPad. Does not appear to be in any distress. OBJECTIVE: VITAL SIGNS: His temperature is 97.6, pulse 97, blood pressure 113/75. He is currently on dobutamine drip at 5 mcg/kg/minute and norepinephrine drip at 10 mcg/minute. His Protonix drip also continues. Total intake for the last 24 hours is 1467, output 800. In terms of blood transfusions, he has had a total of 7 units of PRBCs and 1 unit of FFP during this admission. He is currently receiving 1 unit of PRBC at the time of this dictation. HEENT: Unremarkable. NECK: Without adenopathy or JVD. LUNGS: Clear. CARDIAC: S1 and S2, regular. ABDOMEN: Soft and nontender to palpation. EXTREMITIES: No clubbing, cyanosis, or edema. LABORATORY DATA: Sodium 142, potassium 4.7, chloride 110, CO2 of 18, BUN 63, creatinine 1.6, glucose 103, AST 215, ALT 140-that was yesterday's labs. No CBC has been done today. ASSESSMENT: 1. Gastrointestinal bleeding. 2. Cardiomyopathy. 3. Systemic hypotension. 4. Chronic obstructive pulmonary disease. 5. LFT elevation. 6. Anemia due to blood loss. PLAN: 1. As per Cardiology with vasopressors and inotropes. 2. Transfuse as needed. 3. Await today's labs. Job ID: [id number]
[2020-05-26 08:44] LABS: Elliptocytes SLIGHT = 2-5 cells (100X) (0-1/hpf); Poikilocytosis SLIGHT = 6-15 cells (100X) (0-5/hpf)
[2020-05-26 08:44] LABS: ALT (SGPT) 183 U/L (8-55); AST (SGOT) 162 U/L (5-34); Albumin 3.5 g/dL (3.4-4.8); Alkaline Phosphatase 49 U/L (40-110); Anion Gap 19 mmol/L (10-20); BUN (Urea Nitrogen) 64 mg/dL (8.4-25.7); Bilirubin, Total 2.2 mg/dL (0.2-1.2); Calc. Creatinine Clearance 46 mL/min (70-130); Calcium 8.7 mg/dL (7.8-10.44); Carbon Dioxide 18 mmol/L (23-31); Chloride 110 mmol/L (98-107); Estimated GFR-MDRD 41; Globulin 1.7 g/dL (2.4-3.5); Glucose 103 mg/dL (83-110); INR-International Normal Ratio 1.6; Potassium 3.7 mmol/L (3.5-5.1); Protein, Total 5.2 g/dL (5.8-8.1); Prothrombin Time 19.2 sec (12.0-14.7); Sodium 143 mmol/L (136-145)
[2020-05-26] MEDS ORDERED: Furosemide 40 MG/4 ML VIAL SLOW IVP SCH (09:45)
[2020-05-26] MEDS ORDERED: Ivabradine 5 MG TAB PO SCH (09:45)
[2020-05-26] MEDS: Sucralfate 1 GM TAB PO SCH ×3 (10:10→20:11)
--- NOTE | 2020-05-26 11:05 | PDOC.PALPN ---
Palliative Progress Note - Subjective Patient in bed, weakness. Three children to bedside. Patient transitioned to DNAR last night. States he is feeling better today, less short of breath. De Los Santos placed last night secondary to frequency paired with fatigue. Remains on dobutamine, norephinephrine drip and protonix. Has had a total of 7 units of PRBC's with 1 unit of FFP. - Objective Vital Signs: Vital Signs - Most Recent Temp Pulse Resp BP Pulse Ox 97.6 F 99 21 H 83/61 L 93 L 05/26/20 07:00 05/26/20 08:09 05/25/20 20:35 05/25/20 20:35 05/25/20 20:35 - Physical Exam Constitutional: cachectic, ill appearing HEENT: EOMI, moist MMs, poor dentition Respiratory: no rhonchi, no wheezing, diminished lung sound Deviation from normal: Increase in respiratory effort with minimal exertion Cardiovascular: irregular Gastrointestinal: soft, non-tender Genitourinary: de los santos catheter Musculoskeletal: edema present Neurology: moves all 4 limbs, no focal deficits Skin: cap refill <2 seconds Psychiatric: A&O x 3, flat affect - Assessment (1) Palliative care encounter Code(s): Z51.5 - ENCOUNTER FOR PALLIATIVE CARE Current Visit: Yes Status: Acute (2) Acute blood loss anemia Code(s): D62 - ACUTE POSTHEMORRHAGIC ANEMIA Current Visit: Yes Status: Acute (3) Acute exacerbation of CHF (congestive heart failure) Code(s): I50.9 - HEART FAILURE, UNSPECIFIED Current Visit: Yes Status: Acute Qualifiers: Heart failure type: combined systolic and diastolic Qualified Code(s): I50.43 - Acute on chronic combined systolic (congestive) and diastolic (congestive) heart failure (4) COPD (chronic obstructive pulmonary disease) Current Visit: Yes Status: Chronic Qualifiers: COPD type: unspecified COPD Qualified Code(s): J44.9 - Chronic obstructive pulmonary disease, unspecified (5) Cardiomyopathy Code(s): I42.9 - CARDIOMYOPATHY, UNSPECIFIED Current Visit: Yes Status: Chronic Qualifiers: Cardiomyopathy type: dilated Qualified Code(s): I42.0 - Dilated cardiomyopathy (6) Tobacco abuse Code(s): Z72.0 - TOBACCO USE Current Visit: Yes Status: Chronic - Plan Plan: Secondary to poor candidate for anesthesia and fragile state no procedure with monitoring and transfusing as needed. Dr Guzman visited with family and they are hopeful for continued improvement. Discussed fragile state and continued need for transfusions paired with pressure support. Discussed multiple morbidities impacting patient health beyond cardiac status. Goal of Care today as per patient and family is for continued improvement, patient oldest son requested that all information be positive and not "doom and gloom" as his last year. Palliative Care will continue to offer emotional support and revisit Goal of Care based on patient response to continued interventions. [45] minutes spent on this encounter with >50% of the time in counseling and coordination of care. - ROS Constitutional: alert, weakness ENT: other (Denies difficulity swallowing) Respiratory: shortness of breath with extertion Cardiology: edema, other (Negative for chest pain) Gastrointestinal: other (Denies nausea vomiting/unaware of any bloody stool in past 12 hour) Genitourinary: frequency Skin: other (Denies rahs or puritis)
[2020-05-26 13:32] LABS: Hemoglobin 8.7 g/dL (14.0-18.0)
--- NOTE | 2020-05-26 13:40 | PDOC.HOSPP ---
- Subjective Encounter Date: 05/26/20 Encounter Time: 12:00 Subjective: lethargic, awakens easily, follows verbal stimuli no chest pain or palp is moving all extremities 2 sons and daughter at bedside - Objective Vital Signs & Weight: Vital Signs (12 hours) Temp Pulse Pulse Ox 05/26/20 12:26 96.3 F L 05/26/20 12:07 96.4 F L 05/26/20 12:00 96.4 F L 05/26/20 11:51 96.4 F L 05/26/20 11:28 96 F L 05/26/20 08:09 99 05/26/20 08:00 94 L 05/26/20 07:00 97.6 F 05/26/20 04:00 97.1 F L Weight Weight 184 lb 11.958 oz Most Recent Monitor Data Heart Rate from ECG 109 NIBP 125/83 NIBP BP-Mean 97 Respiration from ECG 20 SpO2 94 I&O: 05/25/20 05/26/20 05/27/20 06:59 06:59 06:59 Intake Total 1045 1467 960 Output Total 250 800 330 Balance 794 667 630 Result Diagrams: 05/26/20 13:05 05/26/20 03:30 Hospitalist ROS - Medication Medications: Active Medications Generic Name Dose Route Start Last Admin Trade Name Freq PRN Reason Stop Dose Admin Albumin Human 25 gm 05/25/20 18:00 05/26/20 12:05 Albumin 25% 25 Gm/100 Ml Bot IVPB 05/26/20 18:01 25 gm Q6HR MAMADOU Administration Alprazolam 0.5 mg 05/25/20 12:24 05/26/20 00:31 Alprazolam 0.5 Mg Tab PO 0.5 mg Q8H PRN Administration Anxiety Amiodarone HCl 200 mg 05/24/20 09:00 05/26/20 08:09 Amiodarone 200 Mg Tab PO 200 mg DAILY MAMADOU Administration Digoxin 0.125 mg 05/24/20 09:00 05/26/20 08:09 Digoxin 0.125 Mg Tab PO 0.125 mg DAILY MAMADOU Administration Norepinephrine Bitartrate 250 mls @ 0 mls/hr 05/22/20 19:17 05/26/20 12:05 Levophed IVPB 250 mls PRN PRN Administration To maintain MAP > 60 Protocol Titrate Pantoprazole Sodium 80 mg/ 100 mls @ 10 mls/hr 05/23/20 13:00 05/25/20 09:49 Miscellaneous Medication 1 IVPB 100 mls each/ Sodium Chloride INF MAMADOU Administration Piperacillin Sod/Tazobactam 100 mls @ 200 mls/hr 05/25/20 12:00 05/26/20 12 :06 Sod 3.375 gm/ Sodium Chloride IVPB 100 mls Q6HR MAMADOU Administration Sucralfate 1 gm 05/26/20 11:30 05/26/20 10:10 Sucralfate 1 Gm Tab PO 1 gm ACHS MAMADOU Administration - Exam General Appearance: awake alert, ill appearing Eye: PERRL, anicteric sclera ENT: no oropharyngeal lesions, dry oral mucosa Neck: supple, no JVD Heart: RRR, no murmur Respiratory: no wheezes, no ronchi, rales Gastrointestinal: soft, non-tender, non-distended, normal bowel sounds Extremities: no cyanosis, 1+ LE edema Neurological: cranial nerve grossly intact, no focal deficits Hosp A/P (1) Acute exacerbation of CHF (congestive heart failure) Code(s): I50.9 - HEART FAILURE, UNSPECIFIED Status: Acute Qualifiers: Heart failure type: combined systolic and diastolic Qualified Code(s): I50.43 - Acute on chronic combined systolic (congestive) and diastolic (congestive) heart failure (2) GI hemorrhage Code(s): K92.2 - GASTROINTESTINAL HEMORRHAGE, UNSPECIFIED Status: Acute Qualifiers: GI bleed type/associated pathology: duodenal ulcer Qualified Code(s): K26.4 - Chronic or unspecified duodenal ulcer with hemorrhage (3) Hemorrhagic shock Code(s): R57.8 - OTHER SHOCK Status: Resolved (4) Acute blood loss anemia Code(s): D62 - ACUTE POSTHEMORRHAGIC ANEMIA Status: Resolved (5) Cardiomyopathy Code(s): I42.9 - CARDIOMYOPATHY, UNSPECIFIED Status: Chronic Qualifiers: Cardiomyopathy type: dilated Qualified Code(s): I42.0 - Dilated cardiomyopathy (6) COPD (chronic obstructive pulmonary disease) Status: Chronic Qualifiers: COPD type: unspecified COPD Qualified Code(s): J44.9 - Chronic obstructive pulmonary disease, unspecified (7) Tobacco abuse Code(s): Z72.0 - TOBACCO USE Status: Chronic (8) Dyslipidemia Code(s): E78.5 - HYPERLIPIDEMIA, UNSPECIFIED Status: Chronic (9) CAD (coronary artery disease) Code(s): I25.10 - ATHSCL HEART DISEASE OF [place] CORONARY ARTERY W/O ANG PCTRS Status: Chronic Qualifiers: Coronary Disease-Associated Artery/Lesion type: [place] artery [place] vs. transplanted heart: [place] heart - Plan recieved total of 7 u prbc and 3 ffp's this admission, still on levophed, dobutamine, sbp around 90's now s/p egd with large duodenal ulcer with visible vessel, cauterized 05/23. ana hose to lower extremities for severe edema has ef of around 10%, hepatic congestion from chf prognosis guarded d/w daughter and sons at bedside, gave full updates, is dnar, is his condition declines they want comfort care d/w and
[2020-05-26] MEDS: DOBUTamine 500 mg/250 ml 500 MG in Premix Bag 1 BAG IVPB SCH (14:28)
[2020-05-26] MEDS: Pantoprazole 80 MG, Admixture Fee 1 EACH in Sodium Chloride 0.9% 100 ML IVPB SCH (14:55)
--- NOTE | 2020-05-26 15:28 | PRG ---
DATE OF SERVICE: 05/26/2020 SERVICE: [facility] Card[facility] Consult Service. SUBJECTIVE: Mr. Jey Maldonado had a good day. His pacemaker system was adjusted to minimize conduction of fast atrial fibrillation rate down and give him a higher basal rate of 85. He received transfusion of 2 units of blood and also 1 unit FFP to correct his GI bleed and his INR situation. One additional dose of digoxin IV 0.125 mcg was given to block his AV node down, so he does not show high conduction of fast atrial fibrillation. All of these combination maneuver worked. His systolic blood pressure came up. He has remained in the high 90s and low 100s throughout the night. He is feeling a little more energetic this morning. REVIEW OF SYSTEMS: GENERAL: There is no fever, chills, or productive cough. HEENT: There is no change in vision, hearing, or swallowing. He is chronically hard of hearing. PULMONARY: He is actually saying he is breathing okay. CARDIAC: There are no complaints of palpitation, chest pains, or syncope. GI: He said that he still has some bowel movement, but he does not think he is having anymore bloody bowel movements. : He had difficulty urinating last night, so [place] catheter had to be to be inserted. MUSCULOSKELETAL: He is not complaining of musculoskeletal pain today. INTEGUMENT: There is no report of new skin breakdown. NEUROLOGIC: There are no complaints of new focal deficits or weaknesses. ACTIVE MEDICATIONS: Include 1. Albumin 25 g IV q.6 hours. 2. Amiodarone 200 mg daily. 3. Digoxin 0.125 mcg daily. 4. Dobutamine currently at 5 mcg/kg/minute. 5. Norepinephrine currently at 13 mcg/minute. 6. Protonix drip. 7. Zosyn at 3.375 g IV q.6 hours. 8. Vasopressin as needed if the combination of dobutamine and norepinephrine is unable to maintain his blood pressure. The telemetry was reviewed. It showed atrial fibrillation. There are some paced beats. His rate has been now in the high 90s, low 100s. PHYSICAL EXAMINATION: VITAL SIGNS: Overnight, his systolic blood pressure ranges from 90 to 100. At the time of examination, his heart rate 96, blood pressure 110/60. GENERAL: He is actually alert, conversational, looking a little bit more energetic and a little more relaxed today. HEENT: Show EOMI. Oropharynx is benign with moist mucosa. NECK: His JVP is elevated at least 13 to 14 cm. PULMONARY: There is good air movement bilaterally, however, he has bibasilar crackles and diminished bases, so he probably has some level of pulmonary edema and bilateral pleural effusion. ABDOMEN: Mildly distended, soft, nontender. Positive bowel sounds. EXTREMITIES: He has 1.5 cm pitting edema from his feet to his knee, but has slightly less than yesterday and he has some pitting edema about his thighs. LABORATORY DATA: White cell count 10.1, hemoglobin 8.3, platelets 146. His sodium is 143, potassium 3.7, chloride 110, bicarb 18, BUN 64, creatinine 1.63. His BUN has decreased and also total bilirubin decreased from 4.2 down to 2.2. However, his INR this morning after transfusion of fresh frozen plasma still at 1.6. Thus, he had an inadequate correction. ASSESSMENT: 74-year-old gentleman who continued to suffer from primary cause of GI bleed. He received transfusion 2 units of blood. The fresh frozen plasma has helped. It helped to stabilize the blood pressure. However, it is inadequate response to indicate he has continued bleeding. His hemodynamics have improved, however, without control of bleeding, the process will continue. He resides in [place] Heart Association stage D and [place] Heart Association class 3B heart failure with reduced ejection fraction with combined systolic and diastolic dysfunctions most likely due to ischemic cardiomyopathy. Right now, it is not the log driver of the present illness but is innocent bystander. We will continue to control his rate and maximize his remaining cardiac function to support him through this very acute period. His liver dysfunction has improved since better hemodynamics. His shock liver is improving. He has acute renal insufficiency, is currently stable and slightly improved. Please see the following for my recommendations. RECOMMENDATIONS: 1. Transfuse 2 units of fresh frozen plasma now trying to correct INR. 2. Give Lasix 40 mg IV one dose after the transfusion through FFPs. 3. Check CBC at 5 p.m. today. If he has continued hemoglobin drop, he will need more transfusion. 4. Please provide sucralfate at 1 g p.o. with meals and at bedtime, to cause the stomach to reduce irritation and bleeding. 5. Start ivabradine at 2.5 mg p.o. daily. This is to better control his atrial fibrillation RVR in addition to amiodarone and digoxin. 6. I would suggest to whenever possible maximize his dobutamine and try to slowly titrate off the norepinephrine. It has been a pleasure taking care of . Jey Maldonado. If any questions, please give me a call. This ICU visit took about 60 minutes. This includes personally performing history and physical, meeting with his entire family to discuss the situation, and coordinating care with multiple services and direct patient interaction. Job ID: [id number] [facility]fani
[2020-05-26 16:54] LABS: #Lymphocytes 1.3 thou/uL (1.20-3.40); #Monocytes 0.9 thou/uL (0.11-0.59); #Neutrophils 8.8 thou/uL (1.40-6.50); %Eosinophils 0.4 % (0.0-10.0); %Lymphocytes 11.7 % (21.0-51.0); %Neutrophils 79.9 % (42.0-75.0); Mean Corpuscular HGB CONC 34.1 g/dL (32.0-36.0); Mean Corpuscular Hemoglobin 30.7 pg (27.0-31.0); Mean Corpuscular Volume 89.9 fL (78.0-98.0); Mean Platelet Volume 8.6 fL (7.4-10.4); Platelet Count 129 thou/uL (130-400); RBC Distribution Width 14.4 % (11.5-14.5); Red Blood Cell (RBC) Count 2.93 mill/uL (4.70-6.10)
--- NOTE | 2020-05-26 16:59 | CON ---
DATE OF CONSULTATION: ADDENDUM: His ejection fraction improved to 30% to 35%. There has continuously been significant problems with Mr. Maldonado and his medications. At times, he will go weeks without taking medications. When he comes to the office, he never brings his medications and it is very difficult to know exactly what he is taking. He has continued to have problems with increased peripheral edema and shortness of breath, and on his ICD, his OptiVol is always at maximum level. On his most recent echocardiogram from May 2019, his ejection fraction was 25% to 30%. This was performed at [facility]. He now presents with gastrointestinal bleeding. He has undergone EGD, found to have duodenal ulcer and this was injected with epinephrine, cauterized and two hemoclips were placed. He complains of mild shortness of breath, but no chest pain or abdominal pain. PAST MEDICAL HISTORY: Coronary artery disease, history of myocardial infarction in 1999 and 2002, hypertension, hypercholesterolemia, ischemic cardiomyopathy, and thyroid nodule. OPERATIONS: Recent biventricular ICD change out on May 13, 2020, stents placed in the diagonal and the circumflex, jaw surgery with wiring, ablation of atrial flutter in October 2013, right common iliac stent, and tonsillectomy. SOCIAL HISTORY: Continues to smoke 1 to 1-1/2 packs per day. He does not drink. MEDICATIONS: The family says that he has not been taking anything since he had his ICD changed out on May 13. From my office records, he is supposed to be on Xarelto 20 mg daily, aspirin 81 daily, digoxin 0.125 q.a.m., KCl 20 mEq b.i.d., atorvastatin 80 mg daily, carvedilol 6.25 b.i.d., Entresto 24/26 b.i.d., furosemide 40 mg two q.a.m. and one q.p.m., amiodarone 200 mg daily, and metolazone 5 mg once a week. ALLERGIES: SHELLFISH CAUSES RASH. FAMILY HISTORY: Father had myocardial infarction. REVIEW OF SYSTEMS: A 10-point review of systems is otherwise unremarkable. PHYSICAL EXAMINATION: VITAL SIGNS: Blood pressure 87/58 and pulse 100. HEENT: PERRL. NECK: Supple. CHEST: Reveals occasional rhonchi. CARDIOVASCULAR: S1, S2 normal without any S3, S4, or murmurs. ABDOMEN: Normal bowel sounds with no tenderness. EXTREMITIES: Revealed 2+ pretibial edema. NEUROLOGIC: Grossly intact. SKIN: Warm and dry. LABORATORY DATA: EKG revealed A-V pacing. Sodium 141, potassium 4.3, chloride 111, carbon dioxide 20, BUN 48, creatinine 1.01. Hemoglobin 9.0, hematocrit 26.4, white count 22,100. IMPRESSION: 1. Gastrointestinal bleed secondary to duodenal ulcer. 2. Ischemic cardiomyopathy with ejection fraction of 25% to 30%. Repeat echo during this admission, his ejection fraction is now 10% to 15%. 3. Left bundle-branch block. 4. Status post biventricular ICD, which was just replaced on May 13, 2020. 5. Three-vessel coronary artery disease, totally occluded right coronary artery. History of 2 myocardial infarctions and history of stent placement in the diagonal and the circumflex. 6. Noncompliance, going weeks at a time without medications and I am always very unsure what medicines he is taking. 7. Paroxysmal atrial fibrillation. 8. History of atrial flutter/ablation. 9. History of hypertension, currently hypotensive. 10. Hypercholesterolemia. 11. Dementia. 12. Smoker. PLAN: The patient will continue to be resuscitated with blood products as needed. Currently, he is on Levophed to support his blood pressure. Certainly with his significant drop in left ventricular function and hypotension, his outlook is poor. I did discuss with his son that consideration should be given to some type of long care facility after discharge due to his noncompliance. Job ID: [id number] [facility]
[2020-05-26] MEDS: Ivabradine 5 MG TAB PO SCH (20:11)
--- NOTE | 2020-05-26 20:33 | PRG ---
DATE OF SERVICE: 05/26/2020 REASON FOR CONSULTATION: Hematochezia, anemia. SUBJECTIVE: Per nursing staff, the patient did not have any additional episodes of hematochezia or melenic-type stools over the last 12 to 16 hours; however, the patient did receive approximately 2 units of PRBCs last night with hemoglobin this morning not showing an appropriate response. Over the course of the day today, the patient has been able to rest more comfortably in bed per the family at bedside with normalization of his blood pressure, although the patient does continue to remain tachycardic. Currently, he denies any nausea, vomiting, fevers, chills, abdominal pain, or hematemesis. OBJECTIVE: VITAL SIGNS: Temperature 96.7, pulse 104, blood pressure 125/77, respiratory rate 32, and saturating 96% on room air. GENERAL: The patient was lying in bed, in no acute distress. He is semi-awake but alert to verbal and tactile stimuli. Oriented x3. CARDIOVASCULAR: Tachycardic rate but regular rhythm. RESPIRATORY: Coarse breath sounds auscultated in all lung baxter with mild expiratory wheeze. ABDOMEN: Hypoactive bowel sounds. Soft, nontender, nondistended. EXTREMITIES: 2+ bilateral lower extremity edema extending to the knees. LABORATORY DATA: Hemoglobin of 8.7 and hematocrit 25.4. IMAGING DATA: No current GI imaging is available for review. IMPRESSION: 1. Gastrointestinal bleeding/hematochezia. The patient was initially admitted to the hospital for gastrointestinal bleeding and underwent upper endoscopy on 05/23/2020, with the finding of a duodenal ulcer along the posterior duodenal bulb that was intervened upon with epinephrine and bipolar cauterization. No bleeding was noted at the end of the maneuver; however, over the last few days, the patient has had a slowly downtrending H and H that has not been amenable to continued infusion of PRBCs. However, over the last 12 to 16 hours, he has not had any further episodes of melenic-type stools consistent with continued GI bleeding. Per discussion with the patient and patient's family, any further procedures would be considered high risk given his ejection fraction of approximately 10%. As such, both the patient and the family would prefer to continue to monitor the situation with continued trending of his H and H and no plans for upper endoscopy at this time. 2. Ischemic hepatopathy with the patient's ejection fraction approximately 10% and continued gastrointestinal bleeding. The patient has had an increase in his LFTs as well as worsening renal function concerning for inadequate perfusion of both organs secondary to decreased circulatory volume and/or ejection fraction. Currently downtrending with inotropic support. 3. Acute renal failure secondary to inadequate perfusion. RECOMMENDATIONS: 1. We would continue to trend his H and H and transfuse as necessary to maintain an H and H of 7/21. 2. Continue to monitor clinically for signs of active GI bleeding. 3. Per patient and family preference, no upper endoscopy is contemplated at this time; however, I would continue to monitor the patient and if the patient has continued bleeding despite conservative efforts and if the patient wishes so, upper endoscopy could be contemplated at that time. 4. We would continue the patient on inotropic support for adequate perfusion of organs. 5. We would attempt to avoid any anticoagulation for the time being. 6. Continue pantoprazole drip in light of duodenal ulceration. We will continue to follow. Please call with any questions. Job ID: [id number]
[2020-05-27] MEDS: Pantoprazole 80 MG, Admixture Fee 1 EACH in Sodium Chloride 0.9% 100 ML IVPB SCH ×3 (02:55→22:16)
[2020-05-27] MEDS: DOBUTamine 500 mg/250 ml 500 MG in Premix Bag 1 BAG IVPB SCH ×2 (03:58→18:18)
[2020-05-27 05:30] LABS: Digoxin 0.76 ng/mL (0.8-2.0)
[2020-05-27 05:32] LABS: Anion Gap 16 mmol/L (10-20); Carbon Dioxide 20 mmol/L (23-31); Chloride 110 mmol/L (98-107); Potassium 3.1 mmol/L (3.5-5.1); Sodium 143 mmol/L (136-145)
[2020-05-27 05:33] LABS: ALT (SGPT) 114 U/L (8-55); AST (SGOT) 66 U/L (5-34); Albumin 3.8 g/dL (3.4-4.8); Alkaline Phosphatase 45 U/L (40-110); BUN (Urea Nitrogen) 52 mg/dL (8.4-25.7); Bilirubin, Total 2.1 mg/dL (0.2-1.2); Calc. Creatinine Clearance 50 mL/min (70-130); Calcium 8.7 mg/dL (7.8-10.44); Estimated GFR-MDRD 45; Globulin 1.7 g/dL (2.4-3.5); Glucose 109 mg/dL (83-110); Protein, Total 5.5 g/dL (5.8-8.1)
[2020-05-27 05:38] LABS: Hemoglobin 9.1 g/dL (14.0-18.0); Lymphocytes 9 % (21-51); MDiff Complete? YES; Mean Corpuscular HGB CONC 33.3 g/dL (32.0-36.0); Mean Corpuscular Hemoglobin 30.3 pg (27.0-31.0); Mean Corpuscular Volume 90.9 fL (78.0-98.0); Monocytes 6 % (0-10); Neutrophil 85 % (42-75); Platelet Count 138 thou/uL (130-400); RBC Distribution Width 14.6 % (11.5-14.5); Red Blood Cell (RBC) Count 3.01 mill/uL (4.70-6.10); White Blood Cell (WBC) Count 12.6 thou/uL (4.8-10.8)
[2020-05-27] MEDS: Piperacillin/Tazobactam 3.375 GM in Sodium Chloride 0.9% 100 ML IVPB SCH ×4 (07:08→23:46)
[2020-05-27] MEDS ORDERED: Potassium Chloride 40 MEQ in Premix Bag 1 BAG IVPB SCH (07:30)
--- NOTE | 2020-05-27 07:44 | PRG ---
DATE OF SERVICE: 05/27/2020 SUBJECTIVE: Mr. Maldonado is awake, alert. He is in no distress. OBJECTIVE: VITAL SIGNS: Temperature 98.1, pulse 104, blood pressure 101/73, O2 saturation 98%. He is currently on dobutamine drip at 7.5 mcg/kg per minute and a Levophed drip at 11 mcg/minute. Additionally, he is on a Protonix drips at 8 mg/hour. His total intake for last 24 hours has been 2792, output 1620. HEENT: Unremarkable. NECK: No adenopathy or JVD. LUNGS: Few crackles in the bases. CARDIAC: S1, S2. Tachycardic with ectopy. ABDOMEN: Soft and nontender to palpation. EXTREMITIES: No clubbing, cyanosis, or overt edema. LABORATORY DATA: White blood cell count 12.6, hematocrit 27.4, and platelet count 138. Sodium 143, potassium 3.1, chloride 110, CO2 of 20, BUN 52, creatinine 1.5, glucose 109. ASSESSMENT: 1. Gastrointestinal bleeding-seems to be stabilized. 2. Cardiomyopathy. 3. Systemic hypotension. 4. Chronic obstructive pulmonary disease. 5. Elevation of LFTs. 6. Anemia due to blood loss. PLAN: At this point, the plan should be to try to wean vasopressors and dobutamine as much as practical. He is currently receiving Zosyn for antibiotic coverage. All things considered that is a profound fluid load and conceivably could be changed to something with less volume such as Rocephin. The patient's potassium will be replaced. We will continue to monitor him. Job ID: [id number]
[2020-05-27] MEDS ORDERED: Digoxin 0.125 MG TAB PO SCH (08:45)
[2020-05-27] MEDS: Digoxin 0.125 MG TAB PO SCH (08:54)
[2020-05-27] MEDS: Amiodarone 200 MG TAB PO SCH (08:54)
[2020-05-27] MEDS: Ivabradine 5 MG TAB PO SCH ×2 (08:54→22:14)
[2020-05-27] MEDS: Sucralfate 1 GM TAB PO SCH ×4 (08:55→22:14)
[2020-05-27 09:50] LABS: INR-International Normal Ratio 1.5; Prothrombin Time 18.2 sec (12.0-14.7)
--- NOTE | 2020-05-27 11:13 | PRG ---
DATE OF SERVICE: 05/27/2020 SERVICE: [facility] Consult Service. SUBJECTIVE: Mr. Jey Maldonado had a much better day yesterday. His systolic blood pressure was stable about 100. He received more blood product, this time it looks like the hemoglobin held. He said that he had 2 more small bowel movements. They were described with some small amount of blood in it, but that it is not as much as in the past. He also received FFPs. Apparently, a family meeting with the traffic analysis technician took place. There are not going to go back in to do scope right now, but rather carefully wait and watch to see how he will do. Overall, he does seem to be improving. This morning, he says he is more energetic and feels better. He is able to eat some food. He is overall feeling better. REVIEW OF SYSTEMS: GENERAL: There is no fever, chills, or productive cough. HEENT: There is no change in vision, hearing, or swallowing. PULMONARY: He is not short of breath. CARDIAC: There are no chest pains. Also he has irregular and sometimes fast, but he does not feel it. GI: Please see HPI. : He has a Atkinson catheter. MUSCULOSKELETAL: He is not complaining of back pain this morning. INTEGUMENT: There is no new skin breakdown reported. NEUROLOGIC: There are no new focal deficits or weaknesses. MEDICATIONS: Currently include: 1. Amiodarone 200 mg daily. 2. Digoxin currently at 0.125 mg daily, another 0.125 was added. 3. Ivabradine 2.5 mg b.i.d. 4. Dobutamine at 7.5 mcg/minute. 5. Norepinephrine at 11 mcg/minute. 6. Protonix IV drip. 7. Piperacillin/tazobactam or Zosyn 3.375 g IV q.6 hours. 8. Sucralfate 1 g p.o. t.i.d. a.c. and h.s. His telemetry was reviewed. It is mainly a paced rhythm. However, there is just a lot of atrial fibrillation breakthrough along with much electrical noise. PHYSICAL EXAMINATION: VITAL SIGNS: Systolic blood pressure between 90s to 100s, currently at 109/57. GENERAL: He is alert and conversational. He is much more relaxed today sitting in a chair beside the bed. This is much more energetic than yesterday, so visually he has significantly improved. HEENT: Show EOMI. Oropharynx is benign with moist mucosa. NECK: His JVP still elevated at least 13 cm near the earlobe. PULMONARY: There is good air movement bilaterally. He has bibasilar crackles, but a little bit less than yesterday. CARDIAC: Irregularly irregular. There is 2/6 holosystolic murmur at the apex with radiation to the left axilla. ABDOMEN: Soft and nontender. Positive bowel sounds. EXTREMITIES: He has 1 cm pitting edema from feet toward his knees, but this is less than yesterday. He also has some pitting edema about his thighs. LABORATORY VALUES: White cell count 12.6, hemoglobin 9.1, and platelets of 138. His chemistry shows sodium 143, potassium 3.1, chloride 110, bicarb 20, BUN of 52, and creatinine at 1.52. His total bilirubin has decreased down to 0.1. His AST is decreased down to 66 and his ALT has decreased down to 114. His albumin is at 1.8. ASSESSMENT: 74-year-old gentleman has made significant improvements. His main problem is still GI bleed. Loss of blood effects the cardiac function which then effects the entire organ perfusion. Since stabilization of intravascular red blood cells, he has been doing much better. Stopping the GI bleed still is the primary concern. His liver dysfunction is improving with the better cardiac output and perfusion. His renal function also is improving. His current regimen of dobutamine, norepinephrine, rhythm control with combination digoxin, amiodarone, and ivabradine is helping. We will also continue to support him from a cardiac perspective. Please see the following for my recommendations. RECOMMENDATIONS: 1. Please provide 40 mEq of potassium now. This will help with his dysrhythmias or will quiet down his atrial fibrillation. 2. Check INR. If his INR is still low, will need to have transfusion of fresh frozen plasma followed by Lasix. 3. I agree with Dr. Duy Jessica of adding extra dose of digoxin today to better block the AV node. 4. Please continue transfusion to keep hemoglobin above 9. He will need his organ perfusion. 5. Consider slowly titrating down norepinephrine slightly. For now, we want to maintain systolic blood pressure of about 100 to perfuse organs. 6. Please check labs at 5 p.m. today. At that point, we will replace electrolytes as needed. If hemoglobin goes down below 9, then he will need a transfusion again. It has been a pleasure taking care of Mr. Maldonado. If you have any questions, please give me a call. ICU visit is 40 minutes. This includes personally performing history and physical, speaking with family, reviewing the data, titirating drips, coordinating with other services, and direct interaction with the patient. Job ID: [id number] [facility]
[2020-05-27] MEDS: Norepinephrine 8 MG/0.9% NS 250 ML IVPB PRN (11:14)
--- NOTE | 2020-05-27 12:21 | PDOC.HOSPP ---
- Subjective Encounter Date: 05/27/20 Encounter Time: 08:00 Subjective: awakens easily, son at bedside is eating better, no nausea or sob or abd pain - Objective Vital Signs & Weight: Vital Signs (12 hours) Temp Pulse 05/27/20 08:57 99 05/27/20 08:54 99 05/27/20 04:00 98.1 F Weight Weight 194 lb 7.163 oz Most Recent Monitor Data Heart Rate from ECG 104 NIBP 101/73 NIBP BP-Mean 82 Respiration from ECG 29 SpO2 98 I&O: 05/26/20 05/27/20 05/28/20 06:59 06:59 06:59 Intake Total 1467 2792 Output Total 800 1620 50 Balance 667 1172 -50 Result Diagrams: 05/27/20 03:20 05/27/20 03:20 Hospitalist ROS - Medication Medications: Active Medications Generic Name Dose Route Start Last Admin Trade Name Freq PRN Reason Stop Dose Admin Alprazolam 0.5 mg 05/25/20 12:24 05/26/20 14:06 Alprazolam 0.5 Mg Tab PO 0.5 mg Q8H PRN Administration Anxiety Amiodarone HCl 200 mg 05/24/20 09:00 05/27/20 08:54 Amiodarone 200 Mg Tab PO 200 mg DAILY MAMADOU Administration Digoxin 0.125 mg 05/24/20 09:00 05/27/20 08:54 Digoxin 0.125 Mg Tab PO 0.125 mg DAILY MAMADOU Administration Norepinephrine Bitartrate 250 mls @ 0 mls/hr 05/22/20 19:17 05/27/20 11:14 Levophed IVPB 250 mls PRN PRN Administration To maintain MAP > 60 Protocol Titrate Pantoprazole Sodium 80 mg/ 100 mls @ 10 mls/hr 05/23/20 13:00 05/27/20 11:14 Miscellaneous Medication 1 IVPB 100 mls each/ Sodium Chloride INF MAMADOU Administration Piperacillin Sod/Tazobactam 100 mls @ 200 mls/hr 05/25/20 12:00 05/27/20 11:13 Sod 3.375 gm/ Sodium Chloride IVPB 100 mls Q6HR MAMADOU Administration Dobutamine HCl/Dextrose 500 mg 250 mls @ 0 mls/hr 05/25/20 09:45 05/27/20 03:58 / Device IVPB 250 mls INF MAMADOU Administration Protocol As Directed Ivabradine 2.5 mg 05/26/20 21:00 05/27/20 08:54 Ivabradine 5 Mg Tab PO 2.5 mg BID MAMADOU Administration Sucralfate 1 gm 05/26/20 11:30 05/27/20 11:12 Sucralfate 1 Gm Tab PO 1 gm ACHS MAMADOU Administration - Exam General Appearance: ill appearing Eye: PERRL, anicteric sclera ENT: no oropharyngeal lesions, dry oral mucosa Neck: supple, no JVD Heart: RRR, murmur present Respiratory: no wheezes, rales, rhonchi Gastrointestinal: soft, non-tender, non-distended, normal bowel sounds Extremities: no cyanosis, 1+ LE edema Neurological: cranial nerve grossly intact, no focal deficits Hosp A/P (1) Acute exacerbation of CHF (congestive heart failure) Code(s): I50.9 - HEART FAILURE, UNSPECIFIED Status: Acute Qualifiers: Heart failure type: combined systolic and diastolic Qualified Code(s): I50.43 - Acute on chronic combined systolic (congestive) and diastolic (congestive) heart failure (2) GI hemorrhage Code(s): K92.2 - GASTROINTESTINAL HEMORRHAGE, UNSPECIFIED Status: Acute Qualifiers: GI bleed type/associated pathology: duodenal ulcer Qualified Code(s): K26.4 - Chronic or unspecified duodenal ulcer with hemorrhage (3) Hemorrhagic shock Code(s): R57.8 - OTHER SHOCK Status: Resolved (4) Acute blood loss anemia Code(s): D62 - ACUTE POSTHEMORRHAGIC ANEMIA Status: Resolved (5) Cardiomyopathy Code(s): I42.9 - CARDIOMYOPATHY, UNSPECIFIED Status: Chronic Qualifiers: Cardiomyopathy type: dilated Qualified Code(s): I42.0 - Dilated car diomyopathy (6) COPD (chronic obstructive pulmonary disease) Status: Chronic Qualifiers: COPD type: unspecified COPD Qualified Code(s): J44.9 - Chronic obstructive pulmonary disease, unspecified (7) Tobacco abuse Code(s): Z72.0 - TOBACCO USE Status: Chronic (8) Dyslipidemia Code(s): E78.5 - HYPERLIPIDEMIA, UNSPECIFIED Status: Chronic (9) CAD (coronary artery disease) Code(s): I25.10 - ATHSCL HEART DISEASE OF [place] CORONARY ARTERY W/O ANG PCTRS Status: Chronic Qualifiers: Coronary Disease-Associated Artery/Lesion type: [place] artery [place] vs. transplanted heart: [place] heart - Plan recieved total of 7 u prbc and 3 ffp's this admission, still on levophed, dobutamine, sbp around 90's now. Taper and dc levophed s/p egd with large duodenal ulcer with visible vessel, cauterized 05/23. ana hose to lower extremities for severe edema has ef of around 10%, hepatic congestion from chf prognosis guarded d/w daughter and sons at bedside, gave full updates, is dnar, if his condition declines they want comfort care (05/26/20) overall stable for now needs to exercise on bed d/w son at bedside
--- NOTE | 2020-05-27 15:52 | PDOC.PALPN ---
Palliative Progress Note - Subjective No specific complains. States fatigued with minimal exertion. Denies any further melenic type stool. Continues to be intermittently tachycardic, labored respirations at rest. Received PRBC and FFP x 2 today as per I &O. Fair appetite, becomes fatigued - Objective Vital Signs: Vital Signs - Most Recent Temp Pulse Resp BP Pulse Ox 98.1 F 99 21 H 83/61 L 94 L 05/27/20 04:00 05/27/20 08:57 05/25/20 20:35 05/25/20 20:35 05/26/20 19:52 - Physical Exam Constitutional: ill appearing Deviation from normal: clavicular wasting HEENT: moist MMs Respiratory: labored respirations Deviation from normal: Bilaterally adventicious lung sound Cardiovascular: RRR Deviation from normal: murmur Gastrointestinal: soft, non-tender, positive bowel sounds Genitourinary: [place] catheter Musculoskeletal: pulses present, edema present Neurology: moves all 4 limbs, no focal deficits Skin: cap refill <2 seconds, bruising, fragile Psychiatric: A&O x 3 - Assessment (1) Palliative care encounter Code(s): Z51.5 - ENCOUNTER FOR PALLIATIVE CARE Current Visit: Yes Status: Acute (2) Acute blood loss anemia Code(s): D62 - ACUTE POSTHEMORRHAGIC ANEMIA Current Visit: Yes Status: Resolved (3) Acute exacerbation of CHF (congestive heart failure) Code(s): I50.9 - HEART FAILURE, UNSPECIFIED Current Visit: Yes Status: Acute Qualifiers: Heart failure type: combined systolic and diastolic Qualified Code(s): I50.43 - Acute on chronic combined systolic (congestive) and diastolic (congestive) heart failure (4) COPD (chronic obstructive pulmonary disease) Current Visit: Yes Status: Chronic Qualifiers: COPD type: unspecified COPD Qualified Code(s): J44.9 - Chronic obstructive pulmonary disease, unspecified (5) Cardiomyopathy Code(s): I42.9 - CARDIOMYOPATHY, UNSPECIFIED Current Visit: Yes Status: Chronic Qualifiers: Cardiomyopathy type: dilated Qualified Code(s): I42.0 - Dilated cardiomyopathy (6) Tobacco abuse Code(s): Z72.0 - TOBACCO USE Current Visit: Yes Status: Chronic - Plan Plan: Oldest son at bedside, confirmed that no GI procedure but a "wait and watch" perspective. Discussed "Hope for the Best, but understanding of potential c omplications". In relation to patient poor appetite and cardiac dysfunction discussed small meals. Suggested Ensure and if patient not desiring secondary to poor taste to mix half a milkshake and half a protein supplement. Palliative Care will continue to assist with Goal of Care, hopeful for ability of patient to tolerate weaning off pressure support and transition to home setting. Will revisit Goal of Care as needed in response to patient status and wishes. [30] minutes spent on this encounter with >50% of the time in counseling and coordination of care. - ROS Constitutional: alert, loss appetite, weakness ENT: other (denies difficulity swallowing) Respiratory: shortness of breath Cardiology: other (denies palpitations) Gastrointestinal: other (denies nausea, vomiting ) Skin: bruising
[2020-05-27 16:56] LABS: #Monocytes 1.2 thou/uL (0.11-0.59); #Neutrophils 13.1 thou/uL (1.40-6.50); %Basophils 0.2 % (0.0-1.0); %Eosinophils 0.2 % (0.0-10.0); %Lymphocytes 6.7 % (21.0-51.0); %Neutrophils 84.9 % (42.0-75.0); Hemoglobin 10.2 g/dL (14.0-18.0); Mean Corpuscular HGB CONC 33.4 g/dL (32.0-36.0); Mean Corpuscular Hemoglobin 30.3 pg (27.0-31.0); Mean Corpuscular Volume 90.8 fL (78.0-98.0); Mean Platelet Volume 8.9 fL (7.4-10.4); Platelet Count 139 thou/uL (130-400); RBC Distribution Width 14.7 % (11.5-14.5); Red Blood Cell (RBC) Count 3.35 mill/uL (4.70-6.10); White Blood Cell (WBC) Count 15.4 thou/uL (4.8-10.8)
[2020-05-27 17:22] LABS: Anion Gap 19 mmol/L (10-20); BUN (Urea Nitrogen) 45 mg/dL (8.4-25.7); Calc. Creatinine Clearance 58 mL/min (70-130); Calcium 8.9 mg/dL (7.8-10.44); Carbon Dioxide 17 mmol/L (23-31); Chloride 110 mmol/L (98-107); Estimated GFR-MDRD 51; Glucose 124 mg/dL (83-110); Potassium 3.5 mmol/L (3.5-5.1); Sodium 142 mmol/L (136-145)
[2020-05-27] MEDS ORDERED: Furosemide 40 MG/4 ML VIAL SLOW IVP SCH (17:30)
--- NOTE | 2020-05-27 18:16 | PRG ---
DATE OF SERVICE: 05/27/2020 REASON FOR CONSULTATION: Hematochezia, anemia. SUBJECTIVE: Per nursing staff and per family, he has not had any further episodes of melenic type stools over the last 24 to 36 hours. He has also not required any additional administration of PRBCs within the last 24 hours as well with his H and H up trending at this time. Today, he states that he is feeling better, although still remains short of breath with minimal exertion. He continues to be on multiple drips for maintenance of cardiac function. Otherwise, he denies any nausea, vomiting, fevers, chills, abdominal pain, hematemesis, melena, or hematochezia. OBJECTIVE: VITAL SIGNS: Temperature 96.9, pulse 100, blood pressure 112/68, respiratory rate 26, saturating 98% on room air. GENERAL: The patient is lying in bed, in no acute distress. Alert and oriented x3. CARDIOVASCULAR: Tachycardic rate but regular rhythm. RESPIRATORY: Coarse breath sounds auscultated in all lung baxter with mild expiratory wheeze. ABDOMEN: Hypoactive bowel sounds. Soft, nontender, nondistended. EXTREMITIES: 2+ bilateral lower extremity edema extending to the bilateral knees. LABORATORY DATA: CBC with a white blood cell count of 12.6, hemoglobin 9.1, hematocrit 27.4, platelets 138. Chemistry with a sodium of 143, potassium 3.1, chloride 110, CO2 of 20, BUN 52, creatinine 1.52, glucose 109, AST 66, ALT 114, alkaline phosphatase 45, total bilirubin 2.1, albumin 3.8. IMAGING DATA: No current GI imaging is available for review. IMPRESSION: 1. Gastrointestinal bleeding/hematochezia. The patient was initially admitted to the hospital for GI bleeding with a duodenal ulcer seen along the posterior duodenal bulb, status post epinephrine and bipolar cauterization. In the postoperative period, the patient has continued to have downtrending H and H, requiring multiple infusions of PRBCs. However, over the last 24 to 36 hours, he has not had any further episodes of clinical GI bleeding with up trending H and H at this time. Given his ejection fraction of approximately 10%, the patient is at high risk for any procedure. 2. Ischemic hepatopathy secondary to poor cardiac function and anemia. LFTs currently downtrending with inotropic support. 3. Acute renal failure secondary to inadequate perfusion, also improving with inotropic support. RECOMMENDATIONS: 1. Would continue to trend his H and H and transfuse as necessary to maintain an H and H of 7/. 2. Continue to monitor clinically for signs of active GI bleeding. 3. Would continue to hold on endoscopy at this time. 4. Continue optimization of the patient's cardiac status. 5. Would avoid any anticoagulation. 6. Continue pantoprazole drip in light of duodenal ulceration and probable bleeding source. 7. Administration of FFP is reasonable to maintain as normal an INR as possible. We will continue to follow. Please call with any questions. Job ID: [id number]
[2020-05-27] MEDS: ALPRAZolam 0.5 MG TAB PO PRN (23:46)
[2020-05-28] MEDS ORDERED: Potassium Chloride 40 MEQ in Premix Bag 1 BAG IVPB SCH (00:15)
[2020-05-28] MEDS: Norepinephrine 8 MG/0.9% NS 250 ML IVPB PRN ×2 (02:25→17:15)
[2020-05-28 05:29] LABS: INR-International Normal Ratio 1.4; Prothrombin Time 17.8 sec (12.0-14.7)
[2020-05-28 05:31] LABS: ALT (SGPT) 114 U/L (8-55); AST (SGOT) 60 U/L (5-34); Albumin 3.6 g/dL (3.4-4.8); Alkaline Phosphatase 46 U/L (40-110); Anion Gap 15 mmol/L (10-20); BUN (Urea Nitrogen) 41 mg/dL (8.4-25.7); Bilirubin, Total 1.9 mg/dL (0.2-1.2); Calc. Creatinine Clearance 59 mL/min (70-130); Calcium 8.6 mg/dL (7.8-10.44); Carbon Dioxide 22 mmol/L (23-31); Chloride 111 mmol/L (98-107); Estimated GFR-MDRD 52; Globulin 1.9 g/dL (2.4-3.5); Glucose 125 mg/dL (83-110); Potassium 3.3 mmol/L (3.5-5.1); Protein, Total 5.5 g/dL (5.8-8.1); Sodium 145 mmol/L (136-145)
[2020-05-28 05:42] LABS: Band 6 % (5-11); Hemoglobin 9.4 g/dL (14.0-18.0); Lymphocytes 4 % (21-51); MDiff Complete? YES; Mean Corpuscular HGB CONC 33.7 g/dL (32.0-36.0); Mean Corpuscular Hemoglobin 30.6 pg (27.0-31.0); Mean Corpuscular Volume 90.8 fL (78.0-98.0); Mean Platelet Volume 8.9 fL (7.4-10.4); Monocytes 3 % (0-10); Neutrophil 87 % (42-75); Platelet Count 144 thou/uL (130-400); RBC Distribution Width 14.6 % (11.5-14.5); Red Blood Cell (RBC) Count 3.08 mill/uL (4.70-6.10); White Blood Cell (WBC) Count 12.8 thou/uL (4.8-10.8)
[2020-05-28] MEDS: Piperacillin/Tazobactam 3.375 GM in Sodium Chloride 0.9% 100 ML IVPB SCH ×4 (06:02→23:46)
[2020-05-28] MEDS: Ivabradine 5 MG TAB PO SCH ×2 (08:41→21:37)
[2020-05-28] MEDS: Digoxin 0.125 MG TAB PO SCH (08:41)
[2020-05-28] MEDS: Amiodarone 200 MG TAB PO SCH (08:41)
[2020-05-28] MEDS: Sucralfate 1 GM TAB PO SCH ×4 (08:45→21:38)
--- NOTE | 2020-05-28 08:47 | PRG ---
DATE OF SERVICE: 05/28/2020 SUBJECTIVE: Jey Maldonado remains in the ICU. He is awake, alert, and responsive. Denies any difficulty breathing, though he states he is weak. OBJECTIVE: VITAL SIGNS: Sats are 90% on room air. His pulse is 80, respiratory rate 18. He is afebrile. Blood pressure 100/60. CHEST: No wheezing. No crackles. CARDIAC: Normal S1, S2. No gallops. ABDOMEN: Soft. EXTREMITIES: No edema. He is presently on Dobutrex drip, Levophed drip placed by Cardiology. His estimated EF done several days ago was 15%. White count 12,000. Creatinine is 1.3, BUN 41. Bilirubin 1.9. ASSESSMENT AND PLAN: 1. Multiple medical problems. 2. Cardiomyopathy, EF 15%. 3. Gastrointestinal bleed. 4. Azotemia. 5. Chronic obstructive pulmonary disease. 6. Severe deconditioning. He is a DNR. He is going to stay in the ICU until he has all drips discontinued. Pulmonary crockett, I am going to continue to follow him. Neb treatments as needed. He is on antibiotics unclear for what. Job ID: [id number]
[2020-05-28] MEDS: DOBUTamine 500 mg/250 ml 500 MG in Premix Bag 1 BAG IVPB SCH ×2 (08:55→22:01)
[2020-05-28] MEDS ORDERED: Spironolactone 25 MG TAB PO SCH (11:15)
[2020-05-28] MEDS ORDERED: Hydrochlorothiazide 25 MG TAB PO SCH (11:15)
[2020-05-28] MEDS ORDERED: Potassium Chloride 40 MEQ in Sodium Chloride 0.9% 250 ML 250 ML IVPB SCH (11:15)
[2020-05-28] MEDS: Vasopressin 20 UNIT, Admixture Fee 1 EACH in Sodium Chloride 0.9% 50 ML IV SCH ×2 (11:30→17:33)
--- NOTE | 2020-05-28 11:37 | PRG ---
DATE OF SERVICE: 05/28/2020 REASON FOR CONSULTATION: Hematochezia, anemia. SUBJECTIVE: Per nursing staff, the patient had 2 small volume maroon-colored stools overnight, but did not have any appearance of melena. Otherwise, the patient is relatively unchanged. Currently, he denies any nausea, vomiting, fevers, chills, abdominal pain, hematemesis, or melena. OBJECTIVE: VITAL SIGNS: Temperature 98.9, pulse 103, blood pressure 109/71, respiratory rate 29, saturating 96% on room air. GENERAL: The patient was lying in bed, in no acute distress. Alert and oriented x3. CARDIOVASCULAR: Regular rate and rhythm. RESPIRATORY: Coarse breath sounds auscultated in all lung baxter with mild expiratory wheeze. ABDOMEN: Normoactive bowel sounds. Soft, nontender, nondistended. EXTREMITIES: 2+ bilateral lower extremity edema extending to the knees. LABORATORY DATA: CBC with a white blood cell count of 12.8, hemoglobin 9.4, hematocrit 28, platelets 144. INR 1.4. Chemistry with a sodium of 145, potassium 3.3, chloride 111, CO2 of 22, BUN 41, creatinine 1.35, glucose 125, AST 60, ALT 114, alkaline phosphatase 46, total bilirubin 1.9. IMAGING DATA: No current GI imaging is available for review. IMPRESSION: 1. Gastrointestinal bleeding/hematochezia. The patient was initially admitted for anemia/hematochezia with a duodenal ulcer seen on upper endoscopy that was intervened upon with epinephrine and bipolar cauterization. In the post procedure period, the patient continued to have a downtrending H and H until the last 24 to 48 hours where he has had stabilization of his H and H. However overnight, the patient did have maroon-colored stools concerning for the presence of continued bleeding. Given his cardiac ejection fraction of approximately 10%, the patient is at high risk for any procedure. 2. Ischemic hepatopathy secondary to poor cardiac function and anemia. LFTs currently downtrending with inotropic support. 3. Acute renal failure secondary to inadequate perfusion, also improving with inotropic support. RECOMMENDATIONS: 1. Would continue to trend his H and H and transfuse as necessary to maintain an H and H of 7/21. 2. Continue to monitor clinically for signs of active GI bleeding. 3. With the muslim of maroon-colored stools if the patient has a dropping H and H over the next 24 hours, I would push for endoscopy at that time given the last few days have shown that he continues to ooze from this lesion. 4. Continue to optimize the patient's cardiac status. 5. Continue to avoid any anticoagulation. 6. Could transfer the patient to pantoprazole IV b.i.d. We will continue to follow. Please call with any questions. Job ID: [id number]
[2020-05-28] MEDS: Pantoprazole 80 MG, Admixture Fee 1 EACH in Sodium Chloride 0.9% 100 ML IVPB SCH ×2 (12:12→22:50)
--- NOTE | 2020-05-28 12:59 | PDOC.HOSPP ---
- Subjective Encounter Date: 05/28/20 Encounter Time: 08:20 Subjective: awakens but is mostly sleeping no chest pain or abd pain moves all extremities has sob per staff had 2 episodes of maroon stools overnight till now - Objective Vital Signs & Weight: Vital Signs (12 hours) Temp Pulse Pulse Ox 05/28/20 12:00 98.4 F 05/28/20 08:41 99 05/28/20 07:45 100 05/28/20 07:00 98.9 F 05/28/20 04:00 98.1 F Weight Weight 188 lb 4.396 oz Most Recent Monitor Data Heart Rate from ECG 99 NIBP 89/62 NIBP BP-Mean 71 Respiration from ECG 30 SpO2 97 I&O: 05/27/20 05/28/20 05/29/20 06:59 06:59 06:59 Intake Total 2792 2395 240 Output Total 1620 1810 290 Balance 1172 585 -50 Result Diagrams: 05/28/20 04:49 05/28/20 04:49 Hospitalist ROS - Medication Medications: Active Medications Generic Name Dose Route Start Last Admin Trade Name Freq PRN Reason Stop Dose Admin Alprazolam 0.5 mg 05/25/20 12:24 05/27/20 23:46 Alprazolam 0.5 Mg Tab PO 0.5 mg Q8H PRN Administration Anxiety Amiodarone HCl 200 mg 05/24/20 09:00 05/28/20 08:41 Amiodarone 200 Mg Tab PO 200 mg DAILY MAMADOU Administration Digoxin 0.125 mg 05/24/20 09:00 05/28/20 08:41 Digoxin 0.125 Mg Tab PO 0.125 mg DAILY MAMADOU Administration Hydrochlorothiazide 25 mg 05/28/20 11:15 05/28/20 11:32 Hydrochlorothiazide 25 Mg Tab PO 05/28/20 13:00 25 mg NOW MAMADOU Administration Norepinephrine Bitartrate 250 mls @ 0 mls/hr 05/22/20 19:17 05/28/20 02:25 Levophed IVPB 250 mls PRN PRN Administration To maintain MAP > 60 Protocol Titrate Pantoprazole Sodium 80 mg/ 100 mls @ 10 mls/hr 05/23/20 13:00 05/28/20 12:12 Miscellaneous Medication 1 IVPB 100 mls each/ Sodium Chloride INF MAMADOU Administration Piperacillin Sod/Tazobactam 100 mls @ 200 mls/hr 05/25/20 12:00 05/28/20 11 :55 Sod 3.375 gm/ Sodium Chloride IVPB 100 mls Q6HR MAMADOU Administration Dobutamine HCl/Dextrose 500 mg 250 mls @ 0 mls/hr 05/25/20 09:45 05/28/20 08:55 / Device IVPB 250 mls INF MAMADOU Administration Protocol As Directed Vasopressin 20 unit/ 51 mls @ 0 mls/hr 05/25/20 09:45 05/28/20 11:30 Miscellaneous Medication 1 IV 51 mls each/ Sodium Chloride INF MAMADOU Administration Protocol As Directed Potassium Chloride 40 meq/ 270 mls @ 67.5 mls/hr 05/28/20 11:15 05/28/20 12:12 Sodium Chloride IVPB 05/28/20 15:14 270 mls NOW MAMADOU Administration Ivabradine 2.5 mg 05/26/20 21:00 05/28/20 08:41 Ivabradine 5 Mg Tab PO 2.5 mg BID MAMADOU Administration Spironolactone 25 mg 05/28/20 11:15 05/28/20 11:32 Spironolactone 25 Mg Tab PO 05/28/20 13:00 25 mg NOW MAMADOU Administration Sucralfate 1 gm 05/26/20 11:30 05/28/20 11:30 Sucralfate 1 Gm Tab PO 1 gm ACHS MAMADOU Administration - Exam General Appearance: ill appearing Eye: PERRL, anicteric sclera ENT: no oropharyngeal lesions, dry oral mucosa Neck: supple, JVD Heart: RRR, murmur present Respiratory: no wheezes, rales, rhonchi Gastrointestinal: soft, non-tender, non-distended, normal bowel sounds Extremities: no cyanosis, 1+ LE edema Neurological: cranial nerve grossly intact, no focal deficits Hosp A/P (1) Acute exacerbation of CHF (congestive heart failure) Code(s): I50.9 - HEART FAILURE, UNSPECIFIED Status: Acute Qualifiers: Heart failure type: combined systolic and diastolic Qualified Code(s): I50.43 - Acute on chronic combined systolic (congestive) and diastolic (congestive) heart failure (2) GI hemorrhage Code(s): K92.2 - GASTROINTESTINAL HEMORRHAGE, UNSPECIFIED Status: Acute Qualifiers: GI bleed type/associated pathology: duodenal ulcer Qualified Code(s): K26.4 - Chronic or unspecified duodenal ulcer with hemorrhage (3) Hemorrhagic shock Code(s): R57.8 - OTHER SHOCK Status: Resolved (4) Acute blood loss anemia Code(s): D62 - ACUTE POSTHEMORRHAGIC ANEMIA Status: Resolved (5) Cardiomyopathy Code(s): I42.9 - CARDIOMYOPATHY, UNSPECIFIED Status: Chronic Qualifiers: Cardiomyopathy type: dilated Qualified Code(s): I42.0 - Dilated cardiomyopathy (6) COPD (chronic obstructive pulmonary disease) Status: Chronic Qualifiers: COPD type: unspecified COPD Qualified Code(s): J44.9 - Chronic obstructive pulmonary disease, unspecified (7) Tobacco abuse Code(s): Z72.0 - TOBACCO USE Status: Chronic (8) Dyslipidemia Code(s): E78.5 - HYPERLIPIDEMIA, UNSPECIFIED Status: Chronic (9) CAD (coronary artery disease) Code(s): I25.10 - ATHSCL HEART DISEASE OF [place] CORONARY ARTERY W/O ANG PCTRS Status: Chronic Qualifiers: Coronary Disease-Associated Artery/Lesion type: [place] artery [place] vs. transplanted heart: [place] heart - Plan recieved total of 7 u prbc and 3 ffp's this admission, still on levophed, dobutamine, sbp around 90's. He is not tolerating levophed taper per staff s/p egd with large duodenal ulcer with visible vessel, cauterized 05/23. ana hose to lower extremities for severe edema, he doesn't like them? has ef of around 10%, hepatic congestion from chf prognosis guarded d/w daughter and sons at bedside, gave full updates, is dnar, if his condition declines they want comfort care (05/26/20) overall stable for now needs to exercise on bed he was counselled to exercise on bed, cant get up with 2 pressors encourage oral intake
[2020-05-28 15:34] LABS: Hemoglobin 9.8 g/dL (14.0-18.0)
[2020-05-28] MEDS: ALPRAZolam 0.5 MG TAB PO PRN (21:38)
[2020-05-29] MEDS: Vasopressin 20 UNIT, Admixture Fee 1 EACH in Sodium Chloride 0.9% 50 ML IV SCH ×2 (03:55→23:57)
[2020-05-29 04:14] LABS: INR-International Normal Ratio 1.4; Prothrombin Time 17.5 sec (12.0-14.7)
[2020-05-29 04:23] LABS: Hemoglobin 9.7 g/dL (14.0-18.0); Lymphocytes 5 % (21-51); MDiff Complete? YES; Mean Corpuscular HGB CONC 32.9 g/dL (32.0-36.0); Mean Corpuscular Hemoglobin 30.7 pg (27.0-31.0); Mean Corpuscular Volume 93.5 fL (78.0-98.0); Mean Platelet Volume 9.2 fL (7.4-10.4); Monocytes 9 % (0-10); Neutrophil 86 % (42-75); Platelet Count 159 thou/uL (130-400); RBC Distribution Width 15.2 % (11.5-14.5); Red Blood Cell (RBC) Count 3.15 mill/uL (4.70-6.10); White Blood Cell (WBC) Count 13.9 thou/uL (4.8-10.8)
[2020-05-29 04:39] LABS: ALT (SGPT) 112 U/L (8-55); AST (SGOT) 49 U/L (5-34); Albumin 3.7 g/dL (3.4-4.8); Alkaline Phosphatase 47 U/L (40-110); Anion Gap 14 mmol/L (10-20); BUN (Urea Nitrogen) 41 mg/dL (8.4-25.7); Calc. Creatinine Clearance 56 mL/min (70-130); Calcium 8.9 mg/dL (7.8-10.44); Carbon Dioxide 22 mmol/L (23-31); Chloride 112 mmol/L (98-107); Estimated GFR-MDRD 51; Globulin 1.9 g/dL (2.4-3.5); Glucose 163 mg/dL (83-110); Potassium 3.8 mmol/L (3.5-5.1); Protein, Total 5.6 g/dL (5.8-8.1); Sodium 144 mmol/L (136-145)
[2020-05-29] MEDS: Norepinephrine 8 MG/0.9% NS 250 ML IVPB PRN ×2 (04:51→19:38)
[2020-05-29] MEDS: Piperacillin/Tazobactam 3.375 GM in Sodium Chloride 0.9% 100 ML IVPB SCH ×4 (06:14→23:57)
--- NOTE | 2020-05-29 07:27 | PRG ---
DATE OF SERVICE: 05/28/2020 SERVICE: [facility]. SUBJECTIVE: Mr. Maldonado had a good day. He was able to sit up and participate in activities. He generally feels good. However, the nurses reported two bowel movement that was maroon blood. Thus, he still has active bleeding. He was able to sleep well overnight. REVIEW OF SYSTEMS: GENERAL: There are no fever or chills. HEENT: There is no change in vision, hearing, or swallowing. PULMONARY: The patient is not complaining short of breath. He is on room air. CARDIAC: He does not complain of palpitations, chest pain or syncope. GI: He has not complained of nausea, vomiting, but then he still has bowel movements that are bloody. : He is on a Atkinson catheter. MUSCULOSKELETAL: He does have some back pain. He wants to be able to move around. INTEGUMENT: There is no report of new skin breakdowns. NEUROLOGIC: There are no new focal deficits or weaknesses. CURRENT MEDICATIONS: With cardiac effect include: 1. Amiodarone 200 mg daily. 2. Digoxin 0.25 mg daily. 3. Dobutamine currently at 7.5 mcg/kg/minute. 4. Ivabradine 2.5 mg b.i.d. 5. Norepinephrine currently at 10 mcg/hour. 6. Protonix drip. 7. Zosyn at 3.375 g IV q.6 hours. 8. Sucralfate 1 g p.o. at bedtime. His telemetry was reviewed. It is paced rhythm, but a lot of atrial fibrillation breakthrough, so I would say it is mainly atrial fibrillation. His rates are between 90s and low 100s. PHYSICAL EXAMINATION: VITALS: Extremely variable. Apparently, he moves his arm. When that happens, it could measure 70s and the next moment, it will be 160, so it is a bit unreliable. The last set of vitals that are reliable, heart rate 96, blood pressure is 109/71. GENERAL: He is alert and conversational, reclining in bed. He says he feels pretty good. HEENT: Show EOMI. Oropharynx is benign with moist mucosa. NECK: JVP is still elevated about 13 cm right below the earlobe. PULMONARY: There is good air movement bilaterally. He has some wheeze. There are some coarse breath sounds and bibasilar crackles and diminished breath sounds at the bases. CARDIAC: Heart sounds are difficult to hear because amount of breathing noise. It is irregular rate, irregular rhythm. S1, S2, there is, I believe, 1/6 holosystolic murmur near the apex. ABDOMEN: Soft, nontender. Positive bowel sounds. EXTREMITIES: Lower extremities, there is 1.5 pitting edema from feet up to his knee, that is less so, but then there is still some pitting edema at the thighs. LABORATORY DATA: His 24 hour in's and out's, it looks like he is net positive, there is 2395 in and 1810 out. However, that does not account for the bowel movements that are bloody. White cell count 12.8, hemoglobin 9.4, platelets 144. His chemistry shows sodium 145, potassium 3.3, chloride 111, bicarb of 22, BUN 41, creatinine 1.35. His total bilirubin also dropped down to 1.9. ASSESSMENT: 74-year-old gentleman continues to be experiencing GI bleed. Reports of bloody stool by the nurse and decrease in blood pressure attest to this problem. This occurred during the day. We will check CBC again later on today. If his hemoglobin drops below 9, then he will need transfusion. His sodium has been increasing. He will become hypernatremic soon, so we will need to use a combination of vasopressin and hydrochlorothiazide to correct this. He is in [place] Heart Association, most likely stage D, [place] Heart Association class 4 heart failure with reduced ejection fraction. Right now, his principal problem is of GI bleed. His heart is performing as well as it can under these circumstances and his rhythm now is much better controlled. Please see the following for my recommendations: RECOMMENDATION: 1. Infuse 40 mEq of potassium chloride now. 2. Please place the patient on electrolyte replacement protocol. He has normal enough renal function that will support this. 3. Please start vasopressin at 0.04 units/minute to help to bring his blood pressure up and allow to be down titration of norepinephrine and also help with sodium. 4. Please start hydrochlorothiazide 25 mg daily. This will help with his sodium and some level of diuresis. 5. Also start spironolactone at 25 mg p.o. daily. This will help with heart failure with reduced ejection fraction and low potassium. 6. Please check CBC at 5 p.m. today. If hemoglobin drops below 9, he will need transfusion. 7. The INR is 1.4 today. So there is no need for FFP today. It has been a pleasure taking care of Mr. Maldonado. If any questions, please give me a call. The ICU time for this patient is 50 minutes today. This includes personally performing history and physical, reviewing data, interacting with multiple services and direct patient interaction. Job ID: [id number] MTDD
[2020-05-29] MEDS ORDERED: Ketamine 50 MG/ML (10ML VIAL) ONE (07:47)
[2020-05-29] MEDS ORDERED: Midazolam HCl 2 mg/2 ml Vial ONE (07:48)
[2020-05-29] MEDS ORDERED: EPINEPHrine 1 MG/10 ML Abboject SYRINGE ONE (07:53)
[2020-05-29] MEDS: Amiodarone 200 MG TAB PO SCH (08:35)
[2020-05-29] MEDS: Sucralfate 1 GM TAB PO SCH ×4 (08:35→21:01)
[2020-05-29] MEDS: Spironolactone 25 MG TAB PO SCH (08:36)
[2020-05-29] MEDS: Digoxin 0.125 MG TAB PO SCH (08:36)
[2020-05-29] MEDS: Ivabradine 5 MG TAB PO SCH ×2 (08:39→21:00)
[2020-05-29] MEDS ORDERED: Hydrochlorothiazide 25 MG TAB PO SCH (09:00)
--- NOTE | 2020-05-29 09:06 | PRG ---
DATE OF SERVICE: 05/29/2020 SUBJECTIVE: A 74-year-old gentleman, underwent upper endoscopy this morning for GI bleed and found to have a severe ulceration. He is presently lethargic from his sedation post endoscopy. OBJECTIVE: VITAL SIGNS: His pulse 105, blood pressure 104/77, respiratory rate of 18, and maximum temperature was 98.6. CHEST: Bilateral rhonchi and crackles. CARDIAC: Normal S1 and S2. No gallops. ABDOMEN: No masses. LABORATORY DATA: White count 1300, H and H 9 and 29, and platelet count is normal. Creatinine is 1.3 and BUN 41. IMPRESSION: Congestive heart failure, chronic obstructive pulmonary disease, severe deconditioning, gastrointestinal bleed, and azotemia. PLAN: Pulmonary crockett, continue present treatment. Still on antibiotics, diuretics, and pressors. Job ID: [id number]
--- NOTE | 2020-05-29 09:14 | OP ---
DATE OF PROCEDURE: 05/29/2020 PROCEDURE PERFORMED: Esophagogastroduodenoscopy (diagnostic). INDICATION FOR PROCEDURE: Melena/hematochezia, recent history of bleeding duodenal ulcer. DESCRIPTION OF PROCEDURE: After the risks and benefits of the procedure were explained to the patient including risks of bleeding, infection, perforation, reactions to anesthesia, aspiration and/or pain, informed consent was obtained. The patient was not moved from the ICU with the procedure done at bedside. Given the patient's tenuous cardiac status, no sedation was given to the patient with the entire procedure done unsedated. Xylocaine spray was used to numb the back of the throat only. Once the patient was maneuvered into the left lateral decubitus position, the standard gastroscope was introduced into the mouth with intubation of the esophagus, stomach, and the proximal small intestines with the findings listed below. The patient tolerated the procedure well with no immediate perioperative complications. Upon conclusion of the procedure, all equipment was removed from the patient and he has remained in ICU for further care. FINDINGS: Esophagus. Normal-appearing mucosa was seen in the proximal, mid, and distal esophagus. There was some mild salmon-colored mucosa seen in the distal esophagus in the GE junction, but a large hiatal hernia was also seen in this region measuring approximately 3 to 4 cm in diameter. Otherwise, there was no evidence of erosions, ulcerations, mass lesions, or active/recent bleeding. Stomach. Normal-appearing mucosa was seen in the gastric cardia, fundus, body, greater curvature, antrum, and incisura. Mild friability was seen within the stomach with passage of the gastroscope, but no evidence of active or recent bleeding was seen. There was no evidence of erosions, ulcerations, or mass lesions. A large hiatal hernia was seen on gastric retroflexion, but did not display any evidence of Timi's ulcers or erosions. Duodenum. A 4 to 5 mm superficial ulceration was seen along the anterior wall of the duodenal bulb. It looks like he was in a stage of healing and that did not display any high-risk stigmata of active or recent bleeding. In fact, no blood or old blood was seen throughout the entire upper endoscopy. An additional ulceration measuring 3 to 4 mm in size was seen in the second portion of the duodenum and again with very superficial in origin was clean base and did not have any high-risk stigmata of active or recent bleeding associated with it. Otherwise, normal-appearing mucosa was seen in both the duodenal bulb and second portion of the duodenum. IMPRESSION: 1. A 3 to 4 cm hiatal hernia without evidence of Timi erosions or ulcerations. 2. [place]-colored mucosa in the distal esophagus concerning for [place] esophagus, but not biopsied during this evaluation. 3. Mild friability of the gastric mucosa, but no evidence of bleeding. 4. A 4 to 5 mm superficial ulcerations seen in the duodenal bulb and 3 to 4 mm superficial ulcerations seen in the second portion of the duodenum that did not display any active or recent bleeding. 5. No etiology for the patient's downtrending H and H/gastrointestinal bleeding was seen during this examination. RECOMMENDATIONS: 1. Would continue to trend his H and H and transfuse as necessary to maintain an H and H of 7/21. 2. Continue to monitor clinically for signs of active GI bleeding. 3. Would order a tagged red cell scan today in an attempt to further localize the GI bleeding to either the small bowel or the colon. If the tagged scan shows increased tracer within the small intestine, I would then transfer the patient to [place] for small bowel enteroscopy. If the tagged cell scan is either negative or shows increased tracer within the colon, I would then proceed with colonoscopy for further evaluation. 4. We will place the patient on a clear liquid diet for today. 5. Continue with inotropic support as per Cardiology recommendations. We will continue to follow. Please call with any questions again. Job ID: [id number]
[2020-05-29] MEDS ORDERED: Potassium Chloride 40 MEQ in Sodium Chloride 0.9% 250 ML 250 ML IVPB SCH (10:30)
--- NOTE | 2020-05-29 11:07 | PRG ---
DATE OF SERVICE: 05/29/2020 SERVICE: [facility]ing [facility]. SUBJECTIVE: Mr. Jey Maldonado had a difficult day. He was reported to have at least 10 bowel movements. It was described by the nursing staff that the bowel movements were small amount, but there were some maroon stools, so it is believed that he is still having some level of GI bleed. Because of that, his blood pressure dropped, vasopressin 0.04 had to be started. He appeared to be more fatigued. REVIEW OF SYSTEMS: GENERAL: There are no fever, chills, productive cough. Please see HPI for fatigue. HEENT: There is no change in vision, hearing, or swallowing. PULMONARY: He said his shortness of breath is about the same. CARDIAC: There are no complaints of chest pain, palpitations, syncope. GI: Please see HPI. : He has a Atkinson catheter in. MUSCULOSKELETAL: There is no new complaint of back pain. INTEGUMENT: There are no reports of new skin breakdown. NEUROLOGIC: There are no focal deficits or weaknesses. MEDICATIONS: Include: 1. Amiodarone 200 mg daily. 2. Digoxin 0.125 mg daily. 3. Dobutamine currently at 7.5 mcg/kg/min. 4. Hydrochlorothiazide 25 mg daily. 5. Ivabradine 2.5 mg b.i.d. 6. Norepinephrine currently at 10 mcg/min. 7. Protonix drip. 8. Zosyn at 3.375 g IV q.6 hours. 9. Spironolactone 25 mg daily. 10. Sucralfate 1 g t.i.d. a.c. and h.s. 11. Vasopressin currently at 0.04 units/min. His telemetry is reviewed. He has mainly atrial fibrillation with superimposed BiV pacing. Whenever there is escape atrial fibrillation, it results in wide- complex because of his baseline bundle branch block. There are some spots where there is A sensed, V paced. He has mixed rhythm with heart rate between 90s and low one 100s. PHYSICAL EXAMINATION: VITAL SIGNS: Latest vitals are heart rate 90, blood pressure 106/64. GENERAL: He appears more fatigued, a little bit more short of breath this morning than yesterday morning. HEENT: EOMI. Oropharynx has moist mucosa. NECK: JVP still about 13 cm. PULMONARY: He has coarse breath sounds, some bibasilar crackles. There is also some slight wheeze. CARDIAC: Irregular rate, irregular rhythm. Normal S1, S2. There is 2/6 holosystolic murmur near the apex. ABDOMEN: There is significant amount of pitting edema. We can push down at least 2 cm. Apparently, he states his dependent edema has collected around his abdomen. EXTREMITIES: Lower extremity edema has decreased today. He has thigh edema, and he also has 1 cm or more pitting edema from his feet up to his knee. Apparently, his dependent edema had redistributed from his legs onto his abdomen and most likely due to his hip positioning. LABORATORY VALUES: This morning, his white cell count 13.9, hemoglobin 9.7, this is a slight decrease, but not significantly so from last night. His platelet count is 159. His chemistry values are sodium 144, potassium 3.8, chloride 112, bicarb 22, BUN 14, creatinine 1.37. His total bilirubin has increased slightly to 2.0. A bedside EGD was done by Dr. Singletary. On the preliminary look, it did not show any gastric bleeding. The duodenal ulcer also was not actively bleeding. Thus, there is no proximal source of bleeding that is obvious. ASSESSMENT: 74-year-old gentleman has likely continued GI bleed past the point of duodenum. That would explain the blood found on stool and drop in blood pressure that necessitated addition of vasopressin. At this point, in consultation with Dr. Singletary, that they will do a tagged red blood cell scan to find a bleeding region. Mr. Jey Maldonado resides in [place] Heart Association stage D and [place] Heart Association class 4 heart failure with reduced ejection fraction. He has both systolic and diastolic dysfunctions. He also has [id number] atrial fibrillation. However, the current scheme of antiarrhythmics and also pacing have it under control. Long-term crockett, it will be very very difficult for him to recover. Please see the following for my recommendations. RECOMMENDATIONS: 1. We will start active diuresis today. Lasix 60 mg IV b.i.d. for one day. 2. Check CBC and labs at 4 p.m. today and supplement as needed. 3. We will aim to maintain systolic blood pressure above 100 to perfuse his organs. 4. Agree and support the general idea of tagged red blood cell scan. 5. Continue to have palliative care engagement. He could be reaching that point, however, that is about the only option. 6. Please continue this combination of dobutamine and norepinephrine and vasopressin as needed. It has been a pleasure taking care of Mr. eJy Maldonado. If any questions, please give me a call. The total ICU visitation time is 60 minutes today. This includes multiple pre and post EGD visit, meeting with his family, personally performing history and physical, titrating drips, reviewing data, coordinating care and direct patient interaction. Job ID: [id number] [facility]
[2020-05-29] MEDS: Furosemide 100 MG/10 ML VIAL SLOW IVP SCH ×2 (11:25→23:56)
--- NOTE | 2020-05-29 12:42 | PDOC.HOSPP ---
- Subjective Encounter Date: 05/29/20 Encounter Time: 08:45 Subjective: lethargic, awakens easily, no sob or chest pain follows verbal stimuli, has weak cough reflex but still able to bring up his sputum daughter and son at bedside no abd pain or nausea - Objective Vital Signs & Weight: Vital Signs (12 hours) Temp Pulse Pulse Ox 05/29/20 08:36 105 H 05/29/20 08:00 96.8 F L 05/29/20 07:06 99 05/29/20 07:00 97.1 F L 05/29/20 04:00 97.8 F 05/29/20 01:18 98 Weight Weight 192 lb 7.417 oz Most Recent Monitor Data Heart Rate from ECG 105 NIBP 110/80 NIBP BP-Mean 90 Respiration from ECG 21 SpO2 100 I&O: 05/28/20 05/29/20 05/30/20 06:59 06:59 06:59 Intake Total 2395 2402.8 120 Output Total 1810 1110 65 Balance 585 1292.8 55 Result Diagrams: 05/29/20 03:40 05/29/20 03:40 Hospitalist ROS - Medication Medications: Active Medications Generic Name Dose Route Start Last Admin Trade Name Freq PRN Reason Stop Dose Admin Alprazolam 0.5 mg 05/25/20 12:24 05/28/20 21:38 Alprazolam 0.5 Mg Tab PO 0.5 mg Q8H PRN Administration Anxiety Amiodarone HCl 200 mg 05/24/20 09:00 05/29/20 08:35 Amiodarone 200 Mg Tab PO 200 mg DAILY MAMADOU Administration Digoxin 0.125 mg 05/24/20 09:00 05/29/20 08:36 Digoxin 0.125 Mg Tab PO 0.125 mg DAILY MAMADOU Administration Furosemide 60 mg 05/29/20 11:00 05/29/20 11:25 Furosemide 100 Mg/10 Ml Vial SLOW IVP 05/29/20 23:59 60 mg 1100,2300 MAMADOU Administration Norepinephrine Bitartrate 250 mls @ 0 mls/hr 05/22/20 19:17 05/29/20 04:51 Levophed IVPB 250 mls PRN PRN Administration To maintain MAP > 60 Protocol Titrate Pantoprazole Sodium 80 mg/ 100 mls @ 10 mls/hr 05/23/20 13:00 05/28/20 22:50 Miscellaneous Medication 1 IVPB 100 mls each/ Sodium Chloride INF MAMADOU Administration Piperacillin Sod/Tazobactam 100 mls @ 200 mls/hr 05/25/20 12:00 05/29/20 11:29 Sod 3.375 gm/ Sodium Chloride IVPB 100 mls Q6HR MAMADOU Administration Dobutamine HCl/Dextrose 500 mg 250 mls @ 0 mls/hr 05/25/20 09:45 05/28/20 22:01 / Device IVPB 250 mls INF MAMADOU Administration Protocol As Directed Vasopressin 20 unit/ 51 mls @ 0 mls/hr 05/25/20 09:45 05/29/20 03:55 Miscellaneous Medication 1 IV 51 mls each/ Sodium Chloride INF MAMADOU Administration Protocol As Directed Ivabradine 2.5 mg 05/26/20 21:00 05/29/20 08:39 Ivabradine 5 Mg Tab PO 2.5 mg BID MAMADOU Administration Spironolactone 25 mg 05/29/20 08:00 05/29/20 08:36 Spironolactone 25 Mg Tab PO 25 mg QAM-WM MAMADOU Administration Sucralfate 1 gm 05/26/20 11:30 05/29/20 11:31 Sucralfate 1 Gm Tab PO 1 gm ACHS MAMADOU Administration - Exam General Appearance: ill appearing Eye: PERRL, anicteric sclera ENT: no oropharyngeal lesions, dry oral mucosa Neck: supple, no JVD Heart: irregular, murmur present Respiratory: no wheezes, rales, rhonchi Gastrointestinal: soft, non-tender, non-distended, normal bowel sounds Gastrointestinal - other findings: edema of dependent portions of torso and thighs Extremities: no cyanosis, 1+ LE edema Neurological: cranial nerve grossly intact, no focal deficits Hosp A/P (1) Acute exacerbation of CHF (congestive heart failure) Code(s): I50.9 - HEART FAILURE, UNSPECIFIED Status: Acute Qualifiers: Heart failure type: combined systolic and diastolic Qualified Code(s): I50.43 - Acute on chronic combined systolic (congestive) and diastolic (congestive) heart failure (2) GI hemorrhage Code(s): K92.2 - GASTROINTESTINAL HEMORRHAGE, UNSPECIFIED Status: Resolved Qualifiers: GI bleed type/associated pathology: duodenal ulcer Qualified Code(s): K26.4 - Chronic or unspecified duodenal ulcer with hemorrhage (3) Hemorrhagic shock Code(s): R57.8 - OTHER SHOCK Status: Resolved (4) Acute blood loss anemia Code(s): D62 - ACUTE POSTHEMORRHAGIC ANEMIA Status: Resolved (5) Cardiomyopathy Code(s): I42.9 - CARDIOMYOPATHY, UNSPECIFIED Status: Chronic Qualifiers: Cardiomyopathy type: dilated Qualified Code(s): I42.0 - Dilated ca rdiomyopathy (6) COPD (chronic obstructive pulmonary disease) Status: Chronic Qualifiers: COPD type: unspecified COPD Qualified Code(s): J44.9 - Chronic obstructive pulmonary disease, unspecified (7) Tobacco abuse Code(s): Z72.0 - TOBACCO USE Status: Chronic (8) Dyslipidemia Code(s): E78.5 - HYPERLIPIDEMIA, UNSPECIFIED Status: Chronic (9) CAD (coronary artery disease) Code(s): I25.10 - ATHSCL HEART DISEASE OF [place] CORONARY ARTERY W/O ANG PCTRS Status: Chronic Qualifiers: Coronary Disease-Associated Artery/Lesion type: [place] artery [place] vs. transplanted heart: [place] heart (10) Cardiogenic shock Code(s): R57.0 - CARDIOGENIC SHOCK Status: Acute - Plan recieved total of 7 u prbc and 4 ffp's this admission, still on levophed, dobutamine and vasopressin was added last evening, sbp around 90's to 100. s/p egd with large duodenal ulcer with visible vessel, cauterized 05/23, repeat egd shows no active bleeding today 05/29. ana hose to lower extremities for severe edema, he doesn't like them? has ef of around 10%, hepatic congestion from chf prognosis guarded d/w daughter and sons at bedside, gave full updates, is dnar, if his condition declines they want comfort care (05/26/20) His h/h has remained stable drop in BP likely due to diuretics given (hctz and spironolactone yesterday), is now on lasix 60mg iv x2 doses for today. continue amiodarone, dig, ivabradine and empiric zosyn. needs to exercise on bed he was counselled to exercise on bed, cant get up with 2 pressors and dobutamine encourage oral intake is going for red cell tagged scan, if bleeding in small intestine will need tx to higher level (not sure if they can localize accurately, await test and results)
[2020-05-29] MEDS: Pantoprazole 80 MG, Admixture Fee 1 EACH in Sodium Chloride 0.9% 100 ML IVPB SCH ×2 (12:57→23:57)
[2020-05-29] MEDS: DOBUTamine 500 mg/250 ml 500 MG in Premix Bag 1 BAG IVPB SCH (13:45)
[2020-05-29] MEDS: ALPRAZolam 0.5 MG TAB PO PRN (21:05)
[2020-05-30] MEDS: DOBUTamine 500 mg/250 ml 500 MG in Premix Bag 1 BAG IVPB SCH ×2 (01:54→07:59)
[2020-05-30 04:51] LABS: INR-International Normal Ratio 1.4; Prothrombin Time 17.6 sec (12.0-14.7)
[2020-05-30 05:06] LABS: ALT (SGPT) 93 U/L (8-55); AST (SGOT) 32 U/L (5-34); Albumin 3.5 g/dL (3.4-4.8); Alkaline Phosphatase 43 U/L (40-110); Anion Gap 16 mmol/L (10-20); BUN (Urea Nitrogen) 44 mg/dL (8.4-25.7); Bilirubin, Total 1.8 mg/dL (0.2-1.2); Calc. Creatinine Clearance 53 mL/min (70-130); Calcium 8.9 mg/dL (7.8-10.44); Carbon Dioxide 21 mmol/L (23-31); Chloride 111 mmol/L (98-107); Estimated GFR-MDRD 46; Glucose 160 mg/dL (83-110); Potassium 3.4 mmol/L (3.5-5.1); Protein, Total 5.5 g/dL (5.8-8.1); Sodium 145 mmol/L (136-145)
[2020-05-30 05:41] LABS: Band 3 % (5-11); Hemoglobin 9.5 g/dL (14.0-18.0); Lymphocytes 12 % (21-51); MDiff Complete? YES; Mean Corpuscular HGB CONC 31.9 g/dL (32.0-36.0); Mean Corpuscular Volume 94.2 fL (78.0-98.0); Mean Platelet Volume 9.2 fL (7.4-10.4); Monocytes 3 % (0-10); Neutrophil 82 % (42-75); Platelet Count 158 thou/uL (130-400); RBC Distribution Width 15.5 % (11.5-14.5); Red Blood Cell (RBC) Count 3.15 mill/uL (4.70-6.10); White Blood Cell (WBC) Count 12.3 thou/uL (4.8-10.8)
[2020-05-30] MEDS: Piperacillin/Tazobactam 3.375 GM in Sodium Chloride 0.9% 100 ML IVPB SCH ×4 (06:46→23:28)
[2020-05-30] MEDS: Sucralfate 1 GM TAB PO SCH ×4 (07:59→21:31)
[2020-05-30] MEDS: Vasopressin 20 UNIT, Admixture Fee 1 EACH in Sodium Chloride 0.9% 50 ML IV SCH ×3 (07:59→20:44)
[2020-05-30] MEDS: Ivabradine 5 MG TAB PO SCH ×2 (08:00→21:31)
[2020-05-30] MEDS: Amiodarone 200 MG TAB PO SCH (08:01)
[2020-05-30] MEDS: Spironolactone 25 MG TAB PO SCH (08:01)
[2020-05-30] MEDS: Digoxin 0.125 MG TAB PO SCH (08:01)
[2020-05-30] MEDS: Pantoprazole 80 MG, Admixture Fee 1 EACH in Sodium Chloride 0.9% 100 ML IVPB SCH (08:22)
[2020-05-30] MEDS ORDERED: Potassium Chloride 40 MEQ in Premix Bag 1 BAG IVPB SCH (08:45)
[2020-05-30] MEDS: Furosemide 100 MG/10 ML VIAL SLOW IVP SCH ×3 (09:09→21:31)
[2020-05-30] MEDS: Norepinephrine 8 MG/0.9% NS 250 ML IVPB PRN ×2 (09:30→23:29)
--- NOTE | 2020-05-30 10:44 | PRG ---
DATE OF SERVICE: 05/30/2020 SERVICE: [facility]. HISTORY OF PRESENT ILLNESS: Mr. Jey Maldonado has been deteriorating throughout the last 24 hours. There has not been report of bloody bowel movements, however, he is growing much more tired, much more short of breath. He also has a drop in blood pressure. Consequently, he needed escalating doses of dobutamine and also vasopressin and also norepinephrine. Unfortunately, his urine output is unable to keep up with his amount of fluid input. Furthermore, due to reported multiple bouts of bloody stools from the night before and conference planner, EGD was performed, but EGD did not find any bleeding spots in the gastric site. He was sent down for a tagged red blood cell scan. He then became very agitated, says he does not want this anymore, so the tagged red blood cell scan was stopped. Consequently, the failed scan did not produce any results. This morning, he is very weak and short of breath and he has expressed a desire that to pass on; however, he does not want to pass on with his family, he rather wants to be done in a location away from his kids. REVIEW OF SYSTEMS: GENERAL: He is very fatigued and very tired. This is the most exhausted that I have seen him in entire week. HEENT: There is no change in vision, hearing, or swallowing. PULMONARY: He is much more short of breath now. CARDIAC: There is no report of chest pain, palpitation, or syncope. GI: Overnight, there was no report of bloody bowel movement and during the day there was. : He is on a Atkinson catheter. MUSCULOSKELETAL: He is not complaining of any musculoskeletal pains right now. INTEGUMENT: There are no new skin breakdowns. NEUROLOGIC: He does not have any focal deficits or weaknesses. He is now just very, very exhausted and sleepy all day. He is unable to open his eyes and concentrate for any length of time. MEDICATIONS: His cardiotropic medications include: 1. Amiodarone 200 mg daily. 2. Digoxin 0.125 mg daily. 3. Dobutamine currently at 10 mcg/kg per minute. 4. Lasix at 60 mg IV b.i.d. 5. Ivabradine at 2.5 mg b.i.d. 6. Norepinephrine currently at 10 mcg/minute. 7. Protonix drip. 8. Zosyn at 3.375 g IV q.6 hours. 9. Spironolactone 25 mg daily. 10. Sucralfate 1 g p.o. t.i.d. before meals and at bedtime. 11. Vasopressin now at 0.04 units/minute. His telemetry was reviewed. The patient is in chronic atrial fibrillation. He either has escaped atrial fibrillation beat with bundle-branch block pattern or paced pattern. His overall heart rate is actually stable between 93 to 110. There are no concerning arrhythmias. His average rate is in the 90s. PHYSICAL EXAMINATION: VITAL SIGNS: Latest vitals; heart rate 86, blood pressure 108/73. GENERAL: He is very fatigued. He can only talk in short sentences. He will drift back to sleep while talking, then you have to wake him again to continue the conversation. However, when he is awake, he is still lucid. HEENT: Shows EOMI. Oropharynx with moist mucosa. JVP is elevated toward the earlobe. PULMONARY: He has bilateral crackles and expiratory wheezes, coarse breath sounds, this is the worst I have heard. CARDIAC: He has irregular rate, irregular rhythm. There is normal S1, S2. There is 2/6 holosystolic murmur near the apex. ABDOMEN: Enlarged with greater than 1.5 cm to 2 cm pitting edema all around the abdomen. EXTREMITIES: He has 2 cm pitting edema from feet to knees toward thighs. LABORATORY VALUES: White cell count 12.3, hemoglobin 9.5, and platelets 158. His chemistry shows sodium 145, potassium 3.4, BUN 44, and creatinine 1.5. ASSESSMENT: An unfortunate 74-year-old gentleman has reached the point of futility in terms of cardiac care. He is requiring escalating doses of dobutamine and norepinephrine and highest reasonable dose of vasopressin. His heart can no longer handle the situation. He still has unresolved gastrointestinal bleed. At this point, he is becoming more edematous. There is no more room to increase the inotropes. There is no hope of improvement. Thus, the only reasonable option at this point is the hospice. This situation was discussed with his son and his daughter. A family meeting was held. One short meeting was held last night, another one was held this morning. At the meeting, the patient was lucid and family was present. The decision is that they want to go to inpatient hospice. Please see the following for my recommendations. RECOMMENDATIONS: 1. Please contact [employer] hvac sales representative to turn off the AICD portion, but leave the pacemaking portion on. 2. Please give potassium chloride 40 mEq IV one dose now. 3. Please give Lasix 80 mg IV t.i.d. to keep him as dry as possible, so his last son can come and see him. 4. Keep the current drips going for now to sustain him until his last family member comes. 5. Please consult inpatient hospice. 6. If need to be, a reasonable hospice drip will be leaving the dobutamine on and having IV Lasix to keep him comfortable. 7. If the family choose to have everything off that will be absolutely fine too. The idea of dobutamine plus IV Lasix is to give him breathing room. It has been a pleasure taking care of Mr. Jey Maldonado. With transition to hospice, I will be signing off of his care. The total ICU time is about 80 minutes. This included titration of IV drips, conducting multiple family conferences, coordinating care with multiple services, personally performing history and physical, reviewing data, and direct patient interaction. Job ID: [id number] [facility]
--- NOTE | 2020-05-30 11:14 | PDOC.PALPN ---
Palliative Progress Note - Subjective Pressure support, supplemental O2, endoscopy at bedside this weekend. Pronounced weakness, assistance with basic ADL needed. Notified by Dr Doherty that patient and family are requesting to transition to hospice care. - Objective Vital Signs: Vital Signs - Most Recent Temp Pulse Resp BP Pulse Ox 97.5 F L 102 H 21 H 83/61 L 99 05/30/20 04:00 05/30/20 08:01 05/25/20 20:35 05/25/20 20:35 05/29/20 12:00 - Physical Exam Constitutional: ill appearing HEENT: EOMI, moist MMs, sclera anicteric Respiratory: accessory muscle use Deviation from normal: Bilaterally adventicious, weak non productive cough Cardiovascular: irregular Gastrointestinal: soft, non-tender, positive bowel sounds Genitourinary: [place] catheter Musculoskeletal: no clubbing, edema present Neurology: moves all 4 limbs, no focal deficits Skin: fragile Psychiatric: A&O x 3 - Assessment (1) Palliative care encounter Code(s): Z51.5 - ENCOUNTER FOR PALLIATIVE CARE Current Visit: Yes Status: Acute (2) Acute blood loss anemia Code(s): D62 - ACUTE POSTHEMORRHAGIC ANEMIA Current Visit: Yes Status: Resolved (3) Acute exacerbation of CHF (congestive heart failure) Code(s): I50.9 - HEART FAILURE, UNSPECIFIED Current Visit: Yes Status: Acute Qualifiers: Heart failure type: combined systolic and diastolic Qualified Code(s): I50.43 - Acute on chronic combined systolic (congestive) and diastolic (congestive) heart failure (4) COPD (chronic obstructive pulmonary disease) Current Visit: Yes Status: Chronic Qualifiers: COPD type: unspecified COPD Qualified Code(s): J44.9 - Chronic obstructive pulmonary disease, unspecified (5) Cardiomyopathy Code(s): I42.9 - CARDIOMYOPATHY, UNSPECIFIED Current Visit: Yes Status: Chronic Qualifiers: Cardiomyopathy type: dilated Qualified Code(s): I42.0 - Dilated cardiomyopathy (6) Tobacco abuse Code(s): Z72.0 - TOBACCO USE Current Visit: Yes Status: Chronic - Plan Plan: Met with patient and his three children to bedside. Discussed transition to hospice care. Patient desires to transition to home setting, consideration is currently he is on 3 medications for pressure support. Although two hospice companies transition to hospice setting with an inotrope for symptom management, it is not customary to transition with 3 IV pressures support medications. It is uncertain if patient will be able to tolerate transition to home setting. Discussed with patient children that creating a "home environment" here at [facility] may be a consideration. Minh Sow RNarchitecture intern obtained choice letter for [facility] [facility]. Conchis Howard to prepare OOHDNAR for Dr Doherty signature. Emotional Support and Therapeutic listening offered to family. [45] minutes spent on this encounter with >50% of the time in counseling and coordination of care. - ROS Constitutional: weakness Respiratory: shortness of breath Cardiology: light headedness Gastrointestinal: other (Negative for nausea, diarrhea) Genitourinary: other (negative for hematuria)
--- NOTE | 2020-05-30 13:16 | NM ---
Radionucleotide GI bleeding scan HISTORY: Continued GI bleeding. FINDINGS: 26 mCi technetium 99m tagged red blood cells IV. There is physiologic uptake of radiotracer throughout the vascular system and solid organs. Imaging w as carried out to 17.4 minutes. Some uptake seen within the urinary bladder. No areas of unexpected radiotracer uptake are apparent. Patient refused imaging after 17.4 minutes. IMPRESSION : No intra-abdominal hemorrhage visualized out to 17 minutes. Patient refused further imaging.
--- NOTE | 2020-05-30 14:50 | PDOC.FMACP ---
Advance Care Planning - Problem (1) Palliative care encounter Status: Acute Code(s): Z51.5 - ENCOUNTER FOR PALLIATIVE CARE (2) Acute blood loss anemia Status: Resolved Code(s): D62 - ACUTE POSTHEMORRHAGIC ANEMIA (3) Acute exacerbation of CHF (congestive heart failure) Status: Acute Code(s): I50.9 - HEART FAILURE, UNSPECIFIED Qualifiers: Heart failure type: combined systolic and diastolic Qualified Code(s): I50.43 - Acute on chronic combined systolic (congestive) and diastolic (co ngestive) heart failure (4) COPD (chronic obstructive pulmonary disease) Status: Chronic Qualifiers: COPD type: unspecified COPD Qualified Code(s): J44.9 - Chronic obstructive pulmonary disease, unspecified (5) Cardiomyopathy Status: Chronic Code(s): I42.9 - CARDIOMYOPATHY, UNSPECIFIED Qualifiers: Cardiomyopathy type: dilated Qualified Code(s): I42.0 - Dilated cardiomy opathy (6) Tobacco abuse Status: Chronic Code(s): Z72.0 - TOBACCO USE - Note Participants: patient, family, palliative care Summary: Revisited Advanced Care Planning,. The diagnosis, prognosis and goals of care were discussed. Appropriate forms and documentation to accomplish the goals of care were discussed. All questions were answered. Confirmed DNAR status, patient electing to also complete OOHDNAR. Placed on chart for Dr Doherty signature. Confirmed patient son is MPOA, also that Mr Maldonado wishes to transition to Hospice care and no longer seek aggressive measures to mange multiple morbidities. Time Spent (mins): 10
--- NOTE | 2020-05-30 15:52 | PDOC.HOSPP ---
- Subjective Encounter Date: 05/30/20 Subjective: Patient says she is not doing too poorly. - Objective Vital Signs & Weight: Vital Signs (12 hours) Temp Pulse Pulse Ox 05/30/20 08:01 102 H 05/30/20 08:00 97.1 F L 99 05/30/20 04:00 97.5 F L Weight Weight 198 lb 13.711 oz Most Recent Monitor Data Heart Rate from ECG 82 NIBP 96/65 NIBP BP-Mean 75 Respiration from ECG 25 SpO2 99 I&O: 05/29/20 05/30/20 05/31/20 06:59 06:59 06:59 Intake Total 2402.8 2638.6 275 Output Total 1110 1340 450 Balance 1292.8 1298.6 -175 Result Diagrams: 05/30/20 04:18 05/30/20 04:18 Hospitalist ROS - Medication Medications: Active Medications Generic Name Dose Route Start Last Admin Trade Name Freq PRN Reason Stop Dose Admin Alprazolam 0.5 mg 05/25/20 12:24 05/29/20 21:05 Alprazolam 0.5 Mg Tab PO 0.5 mg Q8H PRN Administration Anxiety Amiodarone HCl 200 mg 05/24/20 09:00 05/30/20 08:01 Amiodarone 200 Mg Tab PO 200 mg DAILY MAMADOU Administration Digoxin 0.125 mg 05/24/20 09:00 05/30/20 08:01 Digoxin 0.125 Mg Tab PO 0.125 mg DAILY MAMADOU Administration Furosemide 80 mg 05/30/20 09:00 05/30/20 14:51 Furosemide 100 Mg/10 Ml Vial SLOW IVP 80 mg TID MAMADOU Administration Norepinephrine Bitartrate 250 mls @ 0 mls/hr 05/22/20 19:17 05/30/20 09:30 Levophed IVPB 250 mls PRN PRN Administration To maintain MAP > 60 Protocol Titrate Pantoprazole Sodium 80 mg/ 100 mls @ 10 mls/hr 05/23/20 13:00 05/30/20 08:22 Miscellaneous Medication 1 IVPB 100 mls each/ Sodium Chloride INF MAMADOU Administration Piperacillin Sod/Tazobactam 100 mls @ 200 mls/hr 05/25/20 12:00 05/30/20 12:27 Sod 3.375 gm/ Sodium Chloride IVPB 100 mls Q6HR MAMADOU Administration Dobutamine HCl/Dextrose 500 mg 250 mls @ 0 mls/hr 05/25/20 09:45 05/30/20 07:59 / Device IVPB 250 mls INF MAMADOU Administration Protocol As Directed Vasopressin 20 unit/ 51 mls @ 0 mls/hr 05/25/20 09:45 05/30/20 07:59 Miscellaneous Medication 1 IV 51 mls each/ Sodium Chloride INF MAMADOU Administration Protocol As Directed Ivabradine 2.5 mg 05/26/20 21:00 05/30/20 08:00 Ivabradine 5 Mg Tab PO 2.5 mg BID MAMADOU Administration Spironolactone 25 mg 05/29/20 08:00 05/30/20 08:01 Spironolactone 25 Mg Tab PO 25 mg QAM-WM MAMADOU Administration Sucralfate 1 gm 05/26/20 11:30 05/30/20 12:26 Sucralfate 1 Gm Tab PO Not Given ACHS MAMADOU - Exam General - other findings: Frail, ill-appearing. Heart: RRR, II/IV Respiratory: rales, rhonchi Gastrointestinal: soft, non-tender, non-distended, normal bowel sounds, no palpable masses, no hepatomegaly, no splenomegaly, no bruit Extremities: 1+ LE edema Skin: normal turgor Musculoskeletal: generalized weakness (Profound) Psychiatric: normal affect, normal behavior, A&O x 3 Hosp A/P (1) Acute exacerbation of CHF (congestive heart failure) Code(s): I50.9 - HEART FAILURE, UNSPECIFIED Status: Acute Qualifiers: Heart failure type: combined systolic and diastolic Qualified Code(s): I50.43 - Acute on chronic combined systolic (congestive) and diastolic (congestive) heart failure (2) Cardiogenic shock Code(s): R57.0 - CARDIOGENIC SHOCK Status: Acute (3) CAD (coronary artery disease) Code(s): I25.10 - ATHSCL HEART DISEASE OF [place] CORONARY ARTERY W/O ANG PCTRS Status: Chronic Qualifiers: Coronary Disease-Associated Artery/Lesion type: [place] artery [place] vs. transplanted heart: [place] heart (4) COPD (chronic obstructive pulmonary disease) Status: Chronic Qualifiers: COPD type: unspecified COPD Qualified Code(s): J44.9 - Chronic obstructive pulmonary disease, unspecified (5) Cardiomyopathy Code(s): I42.9 - CARDIOMYOPATHY, UNSPECIFIED Status: Chronic Qualifiers: Cardiomyopathy type: dilated Qualified Code(s): I42.0 - Dilated cardiomyopathy (6) Dyslipidemia Code(s): E78.5 - HYPERLIPIDEMIA, UNSPECIFIED Status: Chronic (7) Tobacco abuse Code(s): Z72.0 - TOBACCO USE Status: Chronic (8) Acute blood loss anemia Code(s): D62 - ACUTE POSTHEMORRHAGIC ANEMIA Status: Resolved (9) GI hemorrhage Code(s): K92.2 - GASTROINTESTINAL HEMORRHAGE, UNSPECIFIED Status: Resolved Qualifiers: GI bleed type/associated pathology: duodenal ulcer Qualified Code(s): K26.4 - Chronic or unspecified duodenal ulcer with hemorrhage (10) Hemorrhagic shock Code(s): R57.8 - OTHER SHOCK Status: Resolved - Plan Spoke with Dr. Atkinson this morning. He had a long conversation with the patient's family. Given the fact that there was no specific finding to indicate the source of blood loss on his initial endoscopy it would be very unlikely that we will be able to identify the source easily. The fact that he has continued to have worsening heart failure in spite of aggressive treatment with pressors makes it patient's overall prognosis extremely poor. He met with family this morning and the decision has been made to transition the patient to hospice care. This was confirmed with my encounter with the patient's family. Order has been placed with case management for hospice assessment. In the interim we will continue with the pressor medications.
[2020-05-30] MEDS: ALPRAZolam 0.5 MG TAB PO PRN (16:42)
--- NOTE | 2020-05-30 19:44 | PRG ---
DATE OF SERVICE: 05/30/2020 SUBJECTIVE: Jey Maldonado was evaluated this morning. He informed me he had decided to go home with hospice. His respiratory rate was in the mid 20s. He was not using accessory muscles. OBJECTIVE: VITAL SIGNS: Heart rate is 80, blood pressure is in the 90s systolic, oximetry is 94% to 96%. LUNGS: Remarkable for mild crackles at both lung bases. HEART: Regular rhythm. ABDOMEN: Soft. EXTREMITIES: Without asymmetry. LABORATORY DATA: White count 12.3, hemoglobin 9.5, platelets 158. Sodium 145, potassium 3.4, chloride 111, bicarb 21, BUN 44, creatinine 1.5. IMPRESSION: 1. Status post gastrointestinal bleed, clinically stable. 2. Chronic obstructive pulmonary disease. 3. Congestive heart failure. 4. Deconditioning. 5. Do not resuscitate status with desire to go home with hospice. I have explained to him that no one knows how long he can last at home with hospice. We will continue current supportive care. Job ID: [id number]
[2020-05-31] MEDS: DOBUTamine 500 mg/250 ml 500 MG in Premix Bag 1 BAG IVPB SCH ×3 (00:34→16:57)
[2020-05-31 04:45] LABS: INR-International Normal Ratio 1.3; Prothrombin Time 16.8 sec (12.0-14.7)
[2020-05-31 05:10] LABS: Anisocytosis SLIGHT = 6-15 cells (100X) (0-5/hpf); Band 2 % (5-11); Hemoglobin 9.5 g/dL (14.0-18.0); Lymphocytes 7 % (21-51); MDiff Complete? YES; Mean Corpuscular HGB CONC 31.9 g/dL (32.0-36.0); Mean Corpuscular Volume 94.1 fL (78.0-98.0); Mean Platelet Volume 9.7 fL (7.4-10.4); Monocytes 4 % (0-10); Neutrophil 87 % (42-75); Platelet Count 165 thou/uL (130-400); Polychromasia SLIGHT = 2-3 cells (100X) (0-2/hpf); Red Blood Cell (RBC) Count 3.16 mill/uL (4.70-6.10); White Blood Cell (WBC) Count 11.4 thou/uL (4.8-10.8)
[2020-05-31] MEDS: Vasopressin 20 UNIT, Admixture Fee 1 EACH in Sodium Chloride 0.9% 50 ML IV SCH ×2 (05:19→11:51)
[2020-05-31] MEDS: Piperacillin/Tazobactam 3.375 GM in Sodium Chloride 0.9% 100 ML IVPB SCH ×2 (05:22→11:30)
[2020-05-31 05:25] LABS: ALT (SGPT) 77 U/L (8-55); AST (SGOT) 22 U/L (5-34); Albumin 3.4 g/dL (3.4-4.8); Alkaline Phosphatase 44 U/L (40-110); Anion Gap 17 mmol/L (10-20); BUN (Urea Nitrogen) 48 mg/dL (8.4-25.7); Bilirubin, Total 1.7 mg/dL (0.2-1.2); Calc. Creatinine Clearance 47 mL/min (70-130); Calcium 8.8 mg/dL (7.8-10.44); Carbon Dioxide 20 mmol/L (23-31); Chloride 109 mmol/L (98-107); Estimated GFR-MDRD 41; Globulin 2.1 g/dL (2.4-3.5); Glucose 138 mg/dL (83-110); Magnesium 2.1 mg/dL (1.6-2.6); Potassium 3.4 mmol/L (3.5-5.1); Protein, Total 5.5 g/dL (5.8-8.1); Sodium 143 mmol/L (136-145)
[2020-05-31] MEDS: Spironolactone 25 MG TAB PO SCH (10:23)
[2020-05-31] MEDS: Sucralfate 1 GM TAB PO SCH ×3 (10:23→16:58)
[2020-05-31] MEDS: Digoxin 0.125 MG TAB PO SCH (10:23)
[2020-05-31] MEDS: Amiodarone 200 MG TAB PO SCH (10:24)
[2020-05-31] MEDS: Furosemide 100 MG/10 ML VIAL SLOW IVP SCH ×2 (10:24→16:28)
[2020-05-31] MEDS: Ivabradine 5 MG TAB PO SCH (10:37)
[2020-05-31] MEDS: Norepinephrine 8 MG/0.9% NS 250 ML IVPB PRN (11:27)
[2020-05-31] MEDS: ALPRAZolam 0.5 MG TAB PO PRN (12:56)
[2020-05-31] MEDS ORDERED: Morphine 4 MG/ML VIAL SLOW IVP PRN (13:26)
--- NOTE | 2020-05-31 16:54 | PDOC.PALPN ---
Palliative Progress Note - Objective Vital Signs: Vital Signs - Most Recent Temp Pulse Resp BP Pulse Ox 97.1 F L 85 21 H 83/61 L 99 05/31/20 04:00 05/31/20 10:23 05/25/20 20:35 05/25/20 20:35 05/30/20 08:00 - Assessment (1) Palliative care encounter Code(s): Z51.5 - ENCOUNTER FOR PALLIATIVE CARE Current Visit: Yes Status: Acute (2) Acute blood loss anemia Code(s): D62 - ACUTE POSTHEMORRHAGIC ANEMIA Current Visit: Yes Status: Resolved (3) Acute exacerbation of CHF (congestive heart failure) Code(s): I50.9 - HEART FAILURE, UNSPECIFIED Current Visit: Yes Status: Acute Qualifiers: Heart failure type: combined systolic and diastolic Qualified Code(s): I50.43 - Acute on chronic combined systolic (congestive) and diastolic (congestive) heart failure (4) COPD (chronic obstructive pulmonary disease) Current Visit: Yes Status: Chronic Qualifiers: COPD type: unspecified COPD Qualified Code(s): J44.9 - Chronic obstructive pulmonary disease, unspecified (5) Cardiomyopathy Code(s): I42.9 - CARDIOMYOPATHY, UNSPECIFIED Current Visit: Yes Status: Chronic Qualifiers: Cardiomyopathy type: dilated Qualified Code(s): I42.0 - Dilated cardiomyopathy (6) Tobacco abuse Code(s): Z72.0 - TOBACCO USE Current Visit: Yes Status: Chronic - Plan Plan: Patient and family elected to transition to home setting with [facility] to manage symptoms related to multiple morbidities and not continue to pursue aggressive measures. [facility] arranging [facility] via IV for transport home. Hospital bed and O2 in home for patient arrival, [facility] will also have medications in home setting for management of patient symptoms. Patient and family aware of limited life expectancy, OOHDNAR was placed on chart for signature by Dr Doherty. Emotional support offered, patient hopeful to see 3 year old grandson that has arrived from [place]. Spiritual care involved with patient care. [30] minutes spent on this encounter with >50% of the time in counseling and coordination of care.
[2020-05-31 17:33] VITALS: TEMP 96.9
--- NOTE | 2020-05-31 19:58 | PRG ---
DATE OF SERVICE: 05/31/2020 SUBJECTIVE: Jey Maldonado is complaining of being tired this morning. He looks fatigued. He is still on three different drugs intravenously. He is tentatively schedule to go downstairs to an ambulance to go home with hospice and have these IV drugs discontinued. This morning, I was concerned that he might not make it down the stairs to even get in an ambulance. OBJECTIVE: LUNGS: He had coarse equal breath sounds. He was wheezing today. HEART: Regular rhythm. ABDOMEN: Soft. IMPRESSION AND PLAN: Chronic obstructive pulmonary disease and congestive heart failure. Tentatively to go home with hospice. We will sign off. Job ID: [id number]
--- NOTE | 2020-06-01 23:54 | DIS ---
DATE OF ADMISSION: 05/22/2020 DATE OF DISCHARGE: 05/31/2020 DISCHARGE DIAGNOSES: 1. Gastrointestinal bleed. 2. Acute blood loss anemia. 3. Hemorrhagic shock. 4. Bleeding duodenal ulcer. 5. Gastric ulcer. 6. Acute on chronic combined systolic/diastolic congestive heart failure. 7. Cardiogenic shock. 8. Coronary artery disease. 9. Cardiomyopathy with ejection fraction of 10% to 15%. 10. Severe mitral regurgitation. 11. Severe tricuspid regurgitation. 12. Chronic obstructive pulmonary disease. 13. Dyslipidemia. 14. History of atrial flutter. HISTORY OF PRESENT ILLNESS: This patient is a 74-year-old male, who initially presented to an outside Emergency Department. The patient had a history of dilated cardiomyopathy with a defibrillator pacemaker in place and a history of atrial arrhythmia, status post ablation, but currently still on Xarelto. The patient had melena for approximately a month and developed significant hematochezia and presented to an outside emergency department, where his systolic blood pressure was in the 70s and his hemoglobin was 8. The patient was subsequently transferred to our facility for further management. He received transfusions and was seen in consultation by Pulmonary Critical Care, GI, and Cardiology and Advanced Heart Failure Cardiology. The patient underwent endoscopy once he was more stabilized, which revealed a large duodenal ulceration of the posterior wall bulb with a visible vessel which was cauterized and had hemoclips placed with control of bleeding. There were also two small ulcers in the anterior bulb, multiple small erosions within the duodenal bulb, tiny erosions within the antrum of the stomach. A large periampullary duodenal diverticulum with no bleeding. The patient subsequently continued to have a worsening evidence of heart failure with hypotension and edema. His echocardiogram revealed an ejection fraction of 10% to 15%. with severe MR and severe TR. Advanced Heart Failure forest manager was consulted and the patient was placed on Inotropes. He continued to receive transfusions as his hemoglobin continued to decline and Inotropes were added and maximized, and the patient continued to have evidence of worsening heart failure. Subsequently, a repeat endoscopy was performed without revealing any signs of active bleeding or the source of his worsening hemoglobin. With that scenario, Dr. Guzman met with the family and the patient and essentially explained that the patient's heart situation and the ongoing GI bleed which eluded diagnosis was not improving, even with maximal interventional efforts and in spite of having received 7 units of blood and 4 units of FFP. Ultimately, they made the decision to transition to hospice care. Hospice was consulted and the plan was ultimately to transition home on hospice to continue dobutamine, pressors, and Lasix. Once this was arranged, the patient was subsequently discharged. PHYSICAL EXAMINATION: VITAL SIGNS: On the day of discharge temperature was 96.9, pulse 84, respirations 17, O2 saturation was 88%-90%, BP was 97/62. GENERAL APPEARANCE: Patient appeared much older than his stated age. He was mildly tachypneic. He was awake and conversant. HEART: Regular with a 2/6 murmur. LUNGS: Diminished. ABDOMEN: Soft, nontender. EXTREMITIES: Pitting edema. DISPOSITION: The patient is discharged to home on home hospice. DISCHARGE MEDICATIONS: He will continue with; 1. Atorvastatin 80 mg daily. 2. Amiodarone 200 mg daily. 3. Coreg 6.25 mg p.o. b.i.d. 4. Digoxin 125 mcg p.o. daily. 5. Potassium 20 mEq b.i.d. 6. Lisinopril 10 mg daily. 7. Xarelto, to be held. 8. Metolazone 5 mg daily. 9. Aldactone 25 mg daily. 10. Carafate 1 g at bedtime. 11. Corlanor 2.5 mg b.i.d. 12. Lasix 80 mg t.i.d. 13. Xanax 0.5 mg q.8 hours p.r.n. DISCHARGE INSTRUCTIONS: He is to have a regular low-sodium diet. His activity is as tolerated and further care plan will be per the hospice team. TIME SPENT: Time spent in discharge activities was greater than 30 minutes. Job ID: [id number] MTDD
== END 2020-05-31 16:55 | disposition hospice, home (50) | DRG 377 ==
LOC: ERS 16:36 → CCU 21:00
PROVIDERS: ADMIT Internal Medicine; ATTEND Internal Medicine
PROC: 30233N1 Transfusion of Nonautologous Red Blood Cells into Peripheral Vein, Percutaneous Approach (ICD-10-PCS; principal; 2020-05-22)
PROC: 30233L1 Transfusion of Nonautologous Fresh Plasma into Peripheral Vein, Percutaneous Approach (ICD-10-PCS; 2020-05-23)
PROC: 30233K1 Transfusion of Nonautologous Frozen Plasma into Peripheral Vein, Percutaneous Approach (ICD-10-PCS; 2020-05-23)
PROC: 3E033XZ Introduction of Vasopressor into Peripheral Vein, Percutaneous Approach (ICD-10-PCS; 2020-05-23)
PROC: 0T9B70Z Drainage of Bladder with Drainage Device, Via Natural or Artificial Opening (ICD-10-PCS; 2020-05-23)
PROC: 0W3P8ZZ Control Bleeding in Gastrointestinal Tract, Via Natural or Artificial Opening Endoscopic (ICD-10-PCS; 2020-05-23)
PROC: 4B02XTZ Measurement of Cardiac Defibrillator, External Approach (ICD-10-PCS; 2020-05-26)
PROC: 0DJ08ZZ Inspection of Upper Intestinal Tract, Via Natural or Artificial Opening Endoscopic (ICD-10-PCS; 2020-05-29)
DX: K26.4 Chronic or unspecified duodenal ulcer with hemorrhage (principal); R57.8 Other shock; I50.43 Acute on chronic combined systolic (congestive) and diastolic (congestive) heart failure; R57.0 Cardiogenic shock; D62 Acute posthemorrhagic anemia; I42.0 Dilated cardiomyopathy; N17.9 Acute kidney failure, unspecified; Z20.828 Contact with and (suspected) exposure to other viral communicable diseases; Z51.5 Encounter for palliative care; Z66 Do not resuscitate; I48.0 Paroxysmal atrial fibrillation; E78.00 Pure hypercholesterolemia, unspecified; I11.0 Hypertensive heart disease with heart failure; J44.9 Chronic obstructive pulmonary disease, unspecified; E78.5 Hyperlipidemia, unspecified; F17.210 Nicotine dependence, cigarettes, uncomplicated; I25.5 Ischemic cardiomyopathy; I25.10 Atherosclerotic heart disease of native coronary artery without angina pectoris; F03.90 Unspecified dementia, unspecified severity, without behavioral disturbance, psychotic disturbance, mood disturbance, and anxiety; Z79.899 Other long term (current) drug therapy; Z79.01 Long term (current) use of anticoagulants; Z95.810 Presence of automatic (implantable) cardiac defibrillator; I25.2 Old myocardial infarction; Z91.013 Allergy to seafood; Z91.14 Patient's other noncompliance with medication regimen
CPT/HCPCS: 36415; 36430; 36556; 36600; 51702; 71045; 78278; 80053; 80061; 80162; 81003; 83605; 83735; 84145; 85007; 85027; 85384; 85610; 85730; 86850; 86900; 86901; 87040; 87635; 93005; 93010; 93306; 96365; 96366; 99292; A9604; C9113; J0171; J1160; J1250; J1940; J2250; J2270; J2543; J3480; J3490; J7050; P9016; P9047; P9059; U0002; U0003